=== PATIENT | female | born 1970 | race Caucasian/White ===

== ENCOUNTER 2020-09-16 16:08 | Outpatient (CLI) | payer OTHER, SELFPAY ==
--- NOTE | ~2020-09-16 | MM_ITS ---
EXAMINATION: MM screening melanie BI w samson HISTORY: Screening TECHNIQUE: Craniocaudal and mediolateral oblique 3-D tomosynthesis images were obtained and synthetic 2-D images were generated. CAD analysis was submitted and interpreted. COMPARISON: Comparison to multiple prior studies sequentially, with oldest reviewed study dated 06/18. BREAST PARENCHYMAL COMPOSITION: The breasts are heterogeneously dense, which may obscure small masses . FINDINGS: There is focal asymmetry in the subareolar location of the left breast on MLO view only. Th e right breast is stable without evidence for malignancy. IMPRESSION: 1. Possible architectural distortion/asymmetry subareolar location of the left breast on MLO view onl y. 2. Additional mammographic views and possible breast ultrasound are recommended. BI-RADS Category 0: Incomplete: Needs additional imaging evaluation. Reviewed, dictated and finalized at location A. C RESEARCHER IMPRESSION: 1. Possible architectural distortion/asymmetry subareolar location of the left breast on MLO view only. 2. Additional mammographic views and possible breast ultrasound are recommended . BI-RADS Category 0: Incomplete: Needs additional imaging evaluation.
== END 2020-09-16 16:09 | disposition home or self-care (01) ==
DX: Z12.31 Encounter for screening mammogram for malignant neoplasm of breast (principal); R92.8 Other abnormal and inconclusive findings on diagnostic imaging of breast
CPT/HCPCS: 77063; 77067

== ENCOUNTER 2020-10-15 08:57 | Outpatient (CLI) | payer OTHER, SELFPAY ==
--- NOTE | ~2020-10-15 | MMUS_ITS ---
EXAMINATION: MM diagnostic mammo unilat LT, US breast LT limited HISTORY: Left breast asymmetry on screening mammogram TECHNIQUE: Additional 3-D tomosynthesis images of the left breast were performed and synthetic 2-D im ages were generated. CAD analysis was submitted and interpreted. High resolution limited left breast ultrasound was performed. COMPARISON: 09/16/2020, 08/06/2019, 07/01/2018, 06/29/2017 FINDINGS: MAMMOGRAPHIC FINDINGS: There is a return to baseline fibroglandular appearance with spot compression of the left breast. No suspicious mass, calcification, or architectural distortion are identified. ULTRASOUND: There is no evidence of focal abnormal solid or cystic lesion in the vicinity of the mammographic fin ding in question. IMPRESSION: 1. No mammographic or sonographic evidence of malignancy. 2. Recommend routine screening mammography in one year. BI-RADS Category 1: Negative Reviewed, dictated and finalized at location A. OLE LEVELER IMPRESSION: 1. No mammographic or sonographic evidence of malignancy. 2. Recommend routine screening mammography in one year. BI-RADS Category 1: Negative
== END 2020-10-15 08:58 ==
DX: R92.8 Other abnormal and inconclusive findings on diagnostic imaging of breast (principal)
CPT/HCPCS: 76642; 77065

== ENCOUNTER 2021-10-24 07:20 | Outpatient (CLI) | payer BC, SELFPAY ==
--- NOTE | ~2021-10-24 | MM_ITS ---
EXAMINATION: MM screening melanie BI w samson HISTORY: Screening TECHNIQUE: Craniocaudal and mediolateral oblique 3-D tomosynthesis images were obtained and synthetic 2-D images were generated. CAD analysis was submitted and interpreted. COMPARISON: Comparison to multiple prior studies sequentially, with oldest reviewed study dated 11/04. BREAST PARENCHYMAL COMPOSITION: The breasts are heterogeneously dense, which may obscure small masses . FINDINGS: There is no evidence of suspicious mass, calcification, or architectural distortion to sugg est malignancy in either breast. There has been no suspicious interval change. IMPRESSION: 1. No mammographic evidence of malignancy. 2. Recommend routine screening mammography in one year. BI-RADS Category 1: Negative Reviewed, dictated and finalized at location B. ITUTIONAL CUSTODIAN
== END 2021-10-24 07:21 | disposition home or self-care (01) ==
LOC: ANHIMG 07:27
DX: Z12.31 Encounter for screening mammogram for malignant neoplasm of breast (principal)
CPT/HCPCS: 77063; 77067

== ENCOUNTER 2021-11-16 23:14 | Emergency (ER) | payer BC, SELFPAY ==
--- NOTE | ~2021-11-16 | XR_ITS ---
EXAMINATION: XR elbow RT min 3V DATE: 11/16/2021 23:46 INDICATION: Right elbow injury. TECHNIQUE: 4 views of right elbow were obtained. COMPARISON: None. FINDINGS: Bone alignment is normal. No fracture. Joint spaces are normal. There is a laceration overl jaclyn the olecranon. No radiopaque foreign body. IMPRESSION: 1. Laceration overlying the olecranon. No radiopaque foreign body. Reviewed, dictated and finalized at location A. MBLER FINGER BUFFS
[2021-11-16 23:16] VITALS: BP 147/99; PULSE 104; RESP 18; TEMP 36.8; O2SAT 99
[2021-11-16] MEDS: TETANUS,DIPHTHERIA,AC PERTUSSIS ADULT (0.5 ML) BOOSTRIX IM (23:58)
[2021-11-17] MEDS: LIDO 1%/EPINEPHRINE 1:100,000 10 ML VIAL (00:04)
--- NOTE | 2021-11-17 00:08 | ED.WOUNDLAC ---
HPI - Wound/Laceration General Chief Complaint: Wound/Laceration Stated Complaint: fall with skin tear Time Seen by Provider: 11/16/21 23:29 Source: patient History of Present Illness HPI narrative: Patient presents with a injury to the right elbow. Patient reports he was walking slipped on ice and struck her elbow on the concrete. She not strike her head or any loss conscious denies any focal numbness or weakness. Reports pain to her right elbow is achy, constant, worse with moving her elbow, no radiation. She does not member when her last tetanus was Related Data Home Medications Medication Instructions Recorded Confirmed alprazolam 11/16/21 Allergies Allergy/AdvReac Type Severity Reaction Status Date / Time No Known Allergies Allergy Mild Unverified 12/19/15 14:48 Review of Systems Review of Systems: CONSTITUTIONAL: Denies fever, chills, or sweats. EYES: Denies visual changes, redness, or discharge. ENT: Denies rhinorrhea, congestion, sore throat, or otalgia. CARDIOVASCULAR: Denies chest pain, palpitations, or edema. RESPIRATORY: Denies cough or dyspnea. GASTROINTESTINAL: Denies abdominal pain, nausea, vomiting, or diarrhea. GENITOURINARY: Denies dysuria or hematuria. SKIN: Denies rash or itching. MUSCULOSKELETAL: Denies back pain, joint pain, or myalgia. NEUROLOGIC: Denies headache, numbness, dizziness, or weakness. PSYCHIATRIC: Denies anxiety or depression. All systems reviewed & are unremarkable except as noted in HPI and below Exam Narrative: GENERAL: Well-appearing, well-nourished, and in no acute distress. HEAD: Normocephalic, atraumatic. EYES: PERRLA and EOMI. ENT: Nares clear, no rhinorrhea or epistaxis. Mucous membranes moist. NECK: Supple. No masses. No JVD EXTREMITIES: Normal range of motion. No edema. Superficial laceration to the right elbow approximately 2 cm there is no major neurovascular injury is noted through full range of motion no tenderness injuries noted through full range of motion distal centimeter with less than 2-second cap refill 5 out of 5 agricultural purchasing agent strength and sensation intact to light touch SKIN: Warm, dry, no rash. NEURO: No focal deficits. Alert and oriented x3. PSYCH: Normal mood and affect. Course Vital Signs Vital signs: Vital Signs Temperature 36.8 C 11/16/21 23:16 Pulse Rate 104 H 11/16/21 23:16 Respiratory Rate 18 11/16/21 23:16 Blood Pressure 147/99 H 11/16/21 23:16 Pulse Oximetry 99 11/16/21 23:16 Temperature 36.8 C 11/16/21 23:16 Pulse Rate 72 11/17/21 00:11 Respiratory Rate 18 11/17/21 00:11 Blood Pressure 122/74 11/17/21 00:11 Pulse Oximetry 98 11/17/21 00:11 Procedures Laceration Laceration 1: Date: 11/17/21 Time: 00:00 Site: upper extremity Size (cm): 2 Description: linear Depth: simple, single layer Local Anesthetic: lidocaine 1% and with epi Pre-repair: wound explored and irrigated ====== Skin Level ====== Size (cm): 3-0 Number of sutures: 3 Technique: simple, interrupted ====== Subcutaneous Layer ====== ====== Muscle Layer ====== ====== Tendon Layer ====== MDM - Wound/Laceration MDM Narrative Medical decision making narrative: H&P as above, vss, pt looks clinically well, exam isolated superficial laceration, imaging without acute process, additional labs/img considered, symptomatic relief available as needed, on reevaluation pt continues to looks clinically well. Patient's tetanus was updated suspect mechanical event with isolated laceration, dns ACS, PE, ACS, neurovascular compromise. plan to tx/monitor as op w/ pcm f/u findings/plan discussed with pt, pt agree/comfortable with plan, return precautions given Imaging Data Radiologist's impression: Impressions Elbow X-Ray 11/16/21 23:47 IMPRESSION: 1. Laceration overlying the olecranon. No radiopaque foreign body. Discharge Plan Discharge Clini
[2021-11-17 00:11] VITALS: BP 122/74; PULSE 72; RESP 18; O2SAT 98
== END 2021-11-17 00:14 | disposition home or self-care (01) ==
PROVIDERS: Emergency Provider Emergency Medicine
DX: S51.011A Laceration without foreign body of right elbow, initial encounter (principal); W00.0XXA Fall on same level due to ice and snow, initial encounter; Z23 Encounter for immunization
CPT/HCPCS: 12001; 73080; 90471; 90715; 99283

== ENCOUNTER 2022-12-05 10:24 | Outpatient (CLI) | payer BC, SELFPAY ==
--- NOTE | ~2022-12-05 | MM_ITS ---
EXAMINATION: MM screening melanie BI w samson HISTORY: Screening mammogram TECHNIQUE: Craniocaudal and mediolateral oblique 3-D tomosynthesis images were obtained and synthetic 2-D images were generated. CAD analysis was submitted and interpreted. COMPARISON: 10/24/2021 bilateral screening mammogram 10/15/2020 diagnostic left mammogram and limited left breast ultrasound examination 09/16/2020, 08/06/2019 bilateral screening mammogram examinations... BREAST PARENCHYMAL COMPOSITION: There are scattered areas of fibroglandular density. FINDINGS: There is no evidence of suspicious mass, calcification, or architectural distortion to sugg est malignancy in either breast. There has been no suspicious interval change. IMPRESSION: 1. No mammographic evidence of malignancy. 2. Recommend routine screening mammography in one year. BI-RADS Category 1: Negative Reviewed, dictated and finalized at location A. [place] OFFICE MANAGER
== END 2022-12-05 10:25 | disposition home or self-care (01) ==
DX: Z12.31 Encounter for screening mammogram for malignant neoplasm of breast (principal)
CPT/HCPCS: 77063; 77067

== ENCOUNTER 2024-01-24 16:01 | Outpatient (CLI) | payer BC, SELFPAY ==
--- NOTE | ~2024-01-24 | MM_ITS ---
EXAMINATION: MM screening melanie BI w samson HISTORY: Screening TECHNIQUE: Craniocaudal and mediolateral oblique 3-D tomosynthesis images were obtained and synthetic 2-D images were generated. CAD analysis was submitted and interpreted. COMPARISON: Comparison to multiple prior studies sequentially, with oldest reviewed study dated 07/01. BREAST PARENCHYMAL COMPOSITION: Not dense: There are scattered areas of fibroglandular density. FINDINGS: There is no evidence of suspicious mass, calcification, or architectural distortion to sugg est malignancy in either breast. There has been no suspicious interval change. IMPRESSION: 1. No mammographic evidence of malignancy. 2. Recommend routine screening mammography in one year. BI-RADS Category 1: Negative Reviewed, dictated and finalized at location B.
== END 2024-01-24 16:02 | disposition home or self-care (01) ==
PROVIDERS: PCP Family Medicine
DX: Z12.31 Encounter for screening mammogram for malignant neoplasm of breast (principal)
CPT/HCPCS: 77063; 77067

== ENCOUNTER 2024-07-20 21:12 | Inpatient (IN) | payer BC, SELFPAY ==
--- NOTE | ~2024-07-20 | XR_ITS ---
EXAM: XR ankle LT 2V DATE: 07/20/2024 21:31 HISTORY: pts dog pulled her and she fell . COMPARISON: None available. FINDINGS: Normal mineralization. Spiral fracture of the distal left tibia with 5 mm lateral displace ment and minimal medial angulation. Comminuted versus spiral fracture of the distal left fibula ascen ding to the level of the joint line, without significant displacement. No lytic or blastic lesion. Mi ld scattered degenerative change. Plantar enthesopathy. No erosion or periosteal change. Soft tissue swelling over the fractures. IMPRESSION: Spiral fracture of the distal left tibia with 5 mm lateral displacement and minimal media l angulation. Nondisplaced comminuted/spiral fracture of the distal left fibula. Reviewed, dictated and finalized at location K. IMPRESSION: Spiral fracture of the distal left tibia with 5 mm lateral displace ment and minimal medial angulation. Nondisplaced comminuted/spiral fracture of the distal left fibula.
[2024-07-20 21:13] VITALS: BP 152/92; PULSE 110; RESP 18; TEMP 36.4; O2SAT 100
--- NOTE | 2024-07-20 22:10 | ED.LOWEXIN ---
HPI - Extremity Injury (Lower) General Chief Complaint: Extremity Injury, Lower Stated Complaint: Left leg/ankle injury/pain Time Seen by Provider: 07/20/24 22:04 History of Present Illness HPI Narrative: 54-year-old otherwise healthy female presenting to the emergency department for evaluation of left ankle injury. Patient states she was in her normal state of health when she opened the garage door to let her dogs out and they ran her over, she twisted her ankle that was plans on the ground. She felt significant pain and popping sensation with popping noise. She was not able to bear weight or get up off the ground. She denied her head or lose consciousness. She has swelling in her left ankle with an obvious deformity. Neurovascularly she is intact able to wiggle her toes with good pulsations and no numbness or tingling. No history of broken bones, no blood thinner use, was otherwise in her normal state of health. Related Data Home Medications Medication Instructions Recorded Confirmed alprazolam 0.25 mg tablet 11/16/21 Allergies Allergy/AdvReac Type Severity Reaction Status Date / Time No Known Allergies Allergy Mild Unverified 07/20/24 21:15 Review of Systems Review of Systems: As reviewed above in HPI Exam Narrative: GENERAL: [Well-appearing, well-nourished, and in no acute distress.] HEAD: [Normocephalic, atraumatic.] EYES: [PERRLA and EOMI.] ENT: Nares clear, no rhinorrhea or epistaxis. Mucous membranes moist. NECK: Supple. CHEST: [Clear to auscultation. No respiratory distress.] HEART: [Regular rate and rhythm]. No murmur heard. [Normal peripheral pulses.] ABDOMEN: [Soft, nondistended], [nontender], [No rigidity or guarding] EXTREMITIES: The left ankle is markedly swollen and tender to palpation but no overlying skin breakdown or erythema. 2+ peripheral pulse a prabhakar. Able to plantar and dorsiflex, eversion and inversion ankle is limited secondary to pain and swelling. Proximal calf without any deformity, knee and hip range of motion intact. SKIN: Warm, dry, no rash. NEURO: [No focal deficits]. Alert and oriented [x3.] PSYCH: [Normal mood and affect.] Course Vital Signs Vital signs: Vital Signs Temperature 36.4 C 07/20/24 21:13 Pulse Rate 110 H 07/20/24 21:13 Respiratory Rate 18 07/20/24 21:13 Blood Pressure 152/92 H 07/20/24 21:13 Pulse Oximetry 100 07/20/24 21:13 Oxygen Delivery Room Air 07/20/24 21:13 Temperature 36.4 C 07/20/24 21:13 Pulse Rate 86 07/20/24 22:42 Respiratory Rate 18 07/20/24 22:42 Blood Pressure 131/91 H 07/20/24 22:42 Pulse Oximetry 100 07/20/24 22:42 Oxygen Delivery Room Air 07/20/24 22:32 Procedures Orthopedic Splinting/Casting Injury #1: Splinting/Casting Date: 07/21/24 Splinting/Casting Time: 23:55 Side: left Lower Extremity Injury Location: ankle Lower Extremity Immobilizer: posterior splint and stirrup splint Splint: customized in ED Pre-Procedure Neuro Vascular Exam: normal Post-Procedure Neuro Vascular Exam: normal Other Orthopedic Equipment: crutches MDM - Extremity Injury (Lower) MDM Narrative Medical decision making narrative: 54-year-old female presenting for left ankle injury after being pulled down by her dogs in the garage. She sustained an injury with significant pain and swelling. She has good pulses 2+ peripherally with no neurovascular compromise. She is able to plantar and dorsiflex at the ankle although inversion and eversion is limited by pain. Ankle x-ray was obtained and she was given Dilaudid p.o. for analgesia. Patient's x-rays were independently reviewed by myself and also interpreted by radiology. I appreciated dense spiral fracture of the distal left tibia slightly angulated with a displaced component and a nondisplaced spiral fracture of the left distal fibula as well. Radiology interpretation shows 5 mm of lateral displacement a
[2024-07-20] MEDS: HYDROmorphone HCL (*CRX) 2 MG TABLET PO (22:30)
[2024-07-20 22:32] VITALS: BP 131/91; PULSE 85; O2SAT 100
[2024-07-20 22:42] VITALS: BP 131/91; PULSE 86; RESP 18; O2SAT 100
--- NOTE | 2024-07-20 23:29 | PC.NURSE ---
Report received from CHARLES Boss. Assumed care of patient at this time.
[2024-07-21] VITALS (7 sets, daily range): BP systolic 105–155; BP diastolic 53–95; PULSE 63–97; RESP 10–18; TEMP 35.9–36.7; O2SAT 97–100; BMI 25.7
[2024-07-21] MEDS: HYDROmorphone HCL INJ (*CRX) 1 MG/ML SYR IV PUSH ×4 (00:24→12:41)
--- NOTE | 2024-07-21 00:27 | PC.NURSE ---
Splint has been applied to patients left ankle/leg. ERP states consulting ortho for advisement on possible sedation and reduction. ERP speaking with Ortho for advisement at this time.
--- NOTE | 2024-07-21 00:28 | PC.NURSE ---
Patient states If I have to be put under, I am on ozempic so I want that noted. ERP notified.
[2024-07-21 00:33] LABS: Basophils Percent Auto 0.3 % (0.2-1.2); Eosinophils Absolute Auto 0.1 K/mm3 (0-0.3); Eosinophils Percent Auto 0.7 % (0-4.4); Hematocrit 42.4 % (37.0-47.0); Hemoglobin 14.4 g/dL (12.0-15.0); Immature Granulocyte Absolute 0.03 K/mm3 (0.00-0.031); Immature Granulocyte Percent A 0.3 % (0-0.5); Lymphocytes Absolute Auto 1.49 K/mm3 (0.9-3.2); Lymphocytes Percent Auto 17.3 % (18.3-44.2); Mean Corpuscular Hemoglobin 30.6 pg (26-34); Monocytes Absolute Auto 0.2 K/mm3 (0.1-0.6); Monocytes Percent Auto 2.2 % (2.6-8.5); Neutrophils Absolute Auto 6.8 K/mm3 (1.3-6.7); Neutrophils Percent Auto 79.2 % (45.5-73.1); Platelet Count Result 298 k/mm3 (150-375); Red Blood Count 4.71 M/mm3 (4.2-5.4); Red Cell Distribution Width 12.4 % (11.5-14.5); White Blood Count 8.6 K/mm3 (4.5-10.0)
[2024-07-21 00:44] LABS: Alanine Aminotransferase 19 U/L (6-35); Albumin Level 4.9 g/dL (3.5-5.1); Alkaline Phosphatase 61 U/L (38-126); Anion Gap 10 mmol/L (4-12); Aspartate Amino Transferase 23 U/L (14-36); Bilirubin,Total 0.4 mg/dL (0.2-1.3); Blood Urea Nitrogen 8 mg/dL (7-17); Calcium 9.4 mg/dL (8.4-10.2); Carbon Dioxide 28 mmol/L (22-30); Chloride 104 mmol/L (98-107); Estimated CRCL calculation 86 ml/min; Estimated Glomerular Filt Rate > 60; Glucose 100 mg/dL (65-110); Potassium 4.2 mmol/L (3.4-5.0); Sodium 142 mmol/L (137-145)
[2024-07-21 01:20] LABS: INR 0.9; Prothrombin Time 12.6 Seconds (11.1-14.7)
[2024-07-21 01:21] LABS: Partial Thromboplastin Time 25.7 Seconds (22.3-36.8)
[2024-07-21] MEDS: HYDROcodone/acetaminophen (*CRX) 5-325 MG TABLET 1 TAB PO (02:20)
--- NOTE | 2024-07-21 02:20 | ADMGEN ---
This patient, Natasha Blanchard, was admitted to Medical Room 243-01. Patient/family oriented to hospital policies and general routines including ID bracelet, bed and alarms, visiting hours, pain management, procedures, bathroom and other care routines, personal items, smoking policy, room service/diet, and visiting hours. Information on how to activate the Rapid Response Team has been discussed. Patient/Family are encouraged to report perceived risks to care and to ask questions if they do not understand what they are told or what they should do.
[2024-07-21] MEDS: LACTATED RINGERS 1,000 ML 125 ML IV CONT (02:21)
--- NOTE | 2024-07-21 03:04 | PM.IMHP ---
H&P: HPI History of Present Illness Date/Time: 07/21/24 03:04 Chief Complaint: Left ankle pain after tripping and falling Narrative: 54-year-old female with a past medical history anxiety, tobacco abuse, hepatic steatosis and GERD who presented to the ER via private vehicle after being knocked over by her large dogs and falling. She reports that she was at the top of the 3 stairs to her garage when her dogs knocked her over and she fell down the stairs. She did not hit her head or lose consciousness. She had immediate significant left ankle pain with a popping sensation with audible noise. She was unable to bear weight or get off the ground without assistance. She had obvious deformity did ankle in the ER. Imaging demonstrated a left tib-fib fracture. Patient had intact sensation and pulses distally. Her leg was splinted in the ER. At the time of my evaluation she stated that her pain was uncontrolled on the half a mg of Dilaudid and [place] that had been provided. She is on semaglutide for weight loss. Her last dose was 5 days ago. She has been on semaglutide for 2 months and is lost 3 lb. She does smoke up to a pack of cigarettes per day. She used to drink alcohol heavily but quit 1 year ago when she found out she had hepatic steatosis. She still occasionally drinks a glass of wine. Review of Systems Review of Systems: She denies any respiratory, cardiac or genitourinary symptoms. She denies headache or visual changes. She reports that she is thirsty and wants to drink water. [facility] Past Medical History Medical History (Updated 07/21/24 @ 04:50 by Kelly Eng DO) Anxiety Current smoker Eczema GERD (gastroesophageal reflux disease) Hepatic steatosis Surgical History Surgical History (Updated 07/21/24 @ 04:50 by Kelly Eng DO) Normal colonoscopy Family History Family History (Updated 07/21/24 @ 04:51 by Kelly Eng DO) Mother Diastolic dysfunction without heart failure Social History Social History (Updated 07/21/24 @ 04:55 by Kelly Eng DO) Social History: She is a homemaker. She lives in her own home with her significant other and 3 out of 4 of her children. She has a Labrador retriever and a pit bull. She has smoked up to 1 pack of cigarettes per day and started smoking when she was 16 years old. She reports that she has stopped smoking multiple times in her life for pregnancies and breast feeding. She has smoked for approximately 35 years. She used to drink 10 or more shots of vodka 5 days a week. She quit drinking alcohol in 2022 after finding out she had hepatic steatosis. She denies illicit substance use. Code status: Full code Surrogate decision maker: Mother Smoking packs per day: 0.33 Smoking cigarettes per day: 6.6 Years smoked: 40 Smoking pack-years: 13.20 Smoking status: Current every day smoker Alcohol intake: current Alcohol use details: She used to drink tender more shots 5 days a week. She currently drinks a glass or 2 of wine on a social basis. Substance use: never Do You Feel Safe in your Home?: Yes Lack of Transportation: No Lack of Food: Never True Current Housing: I Have Housing Concerned About Future Housing: No Difficulty Paying Gas/Electric Bills: No Difficulty Paying for Meds: No Currently Unemployed: No Education: High School Diploma/GED Difficulty w/ Childcare or Family Care: No Spiritual care concerns: No Meds Home Medications and Allergies Home Medications Medication Instructions Recorded Confirmed Type alprazolam 0.25 mg tablet 0.25 mg PO BID PRN Anxiety 11/16/21 07/21/24 History pantoprazole 40 mg tablet,delayed 40 mg PO DAILY 07/21/24 07/21/24 History release semaglutide 1 mg/dose (2 mg/1.5 0.4 mg subcut WEEKLY 07/21/24 07/21/24 History mL) subcutaneous pen injector Allergies Allergy/AdvReac Type Severity Reaction Status Date / Time No Known Allergies Allergy Mi
--- NOTE | 2024-07-21 08:12 | PM.IMPN ---
Progress Note: A&P Assessment and Plan (1) Fracture of tibia and fibula: Qualifiers: Encounter type: initial encounter Fracture type: closed Laterality: left Qualified Code(s): S82.202A - Unspecified fracture of shaft of left tibia, initial encounter for closed fracture; S82.402A - Unspecified fracture of shaft of left fibula, initial encounter for closed fracture Code(s): S82.209A - Unspecified fracture of shaft of unspecified tibia, initial encounter for closed fracture; S82.409A - Unspecified fracture of shaft of unspecified fibula, initial encounter for closed fracture Status: Acute Assessment and Plan: Left ankle in a splint. Unable to visualize but patient reported fracture is not open. 07/20 X-ray left ankle Spiral fracture of the distal left tibia with 5 mm lateral displacement and minimal medial angulation. Nondisplaced comminuted/spiral fracture of the distal left fibula. --Likely transfer to orthopedic service since no medical problems --Pain control (2) Acute pain: Code(s): R52 - Pain, unspecified Status: Acute Assessment and Plan: Acute pain due to fracture of left ankle --Schedule tylenol QID --Oxy CR 10mg q12 x3 doses --Schedule toradol q6 --Start gabapentin 100 TID --Continue oxy, dilaudid prn --Continuous oximetry while on high doses of dilaudid --Start miralax for bowel regimen (3) Weight loss, intentional: Status: Acute Assessment and Plan: Patient taking semaglutide for weight loss. She is not diabetic --Holding semaglutide --Accuchecks q6 --Add dextrose fluids @100/hr (4) Current smoker: Code(s): F17.200 - Nicotine dependence, unspecified, uncomplicated Status: Acute Assessment and Plan: Smokes 1 pack every 2-3 days Nicotine patch if requested, off for now Plan Patient's leg is splinted. Consult was been placed for Dr. Justin Hidalgo, Dr. Pond security operations analyst and declined, unable to repair fracture at this hospital. Called the [facility] transfer center and they are looking for an accepting physician with the orthopedic service Ice chips and sips of water until we hear from the transfer center. Still having significant pain with dilaudid, titrating medications. Will resume patient's home Protonix and xanax PRN. Patient's semaglutide is on hold, last dose 07/17. Add accuchecks and D5@100 while NPO Will defer DVT prophylaxis until we know if the patient is going for surgical procedure. Time Spent With Patient Time: 54 minutes Subjective Date/time seen: 07/21/24 08:12 Interval history: Admitted for a spiral fracture of the distal left tibia. Reports severe pain from ankle Ortho here not able to repair, recommended transfer. Called transfer center at [facility] and they are looking for an accepting physician with orthopedics Review of Systems Review of Systems: She denies any respiratory, cardiac or genitourinary symptoms. She denies headache or visual changes. She reports that she is thirsty and wants to drink water. Exam Narrative: Weight 72.4 kg BMI 25.8 General - Awake and alert. No acute distress Eyes - PERRLA, EOM intact ENT - No thrush, No erythema Neck - No noticeable or palpable swelling Lymph Nodes - No lymphadenopathy Cardiovascular - RRR no m/r/g, no JVD Lungs: Clear to auscultation, No wheezing, use of accessory muscles, no crackles or wheezes. Skin - Skin warm and dry, no wounds or rashes Abdomen - Normal bowel sounds, abdomen soft and nontender Extremities - No edema, cyanosis or clubbing Musculoskeletal - 5/5 strength, Able to wiggle toes in left foot, pink, capillary refill <2sec, normal sensation Pain to low ankle, wrapped/splinted Neurological ? Alert and oriented x 3, CN 2-12 grossly intact. Psych: Normal mood and affect Objective Data Vital Signs Vital Signs: Vital Signs - 24 hr 07/20/24 21:13 07/20/24 22:32 07/20/24 22:42 Temperature 97.6 F Pulse Rate 110 H
[2024-07-21] MEDS: PANTOPRAZOLE 40 MG TABLET PO (08:14)
[2024-07-21] MEDS: DEXTROSE 5%/0.9% SOD CHL 1,000 ML 100 ML IV CONT (08:42)
[2024-07-21] MEDS: KETOROLAC 30 MG/ML VIAL (*BKC) IV PUSH ×3 (08:47→23:23)
[2024-07-21] MEDS: GABAPENTIN 100 MG CAPSULE PO ×3 (08:48→16:23)
[2024-07-21] MEDS: ACETAMINOPHEN 500 MG TABLET 1000 MG PO ×4 (08:48→23:23)
[2024-07-21] MEDS: polyethylene glycoL 3350 17 GM POWD.PACK PO (08:49)
[2024-07-21] MEDS: oxyCODONE HCL (*CRX) 10 MG TAB SR 12HR PO ×2 (08:49→20:26)
--- NOTE | 2024-07-21 12:08 | PM.CNOR ---
Assessment and Plan Assessment and plan (1) Fracture of tibia and fibula: Qualifiers: Encounter type: initial encounter Fracture type: closed Laterality: left Qualified Code(s): S82.202A - Unspecified fracture of shaft of left tibia, initial encounter for closed fracture; S82.402A - Unspecified fracture of shaft of left fibula, initial encounter for closed fracture Code(s): S82.209A - Unspecified fracture of shaft of unspecified tibia, initial encounter for closed fracture; S82.409A - Unspecified fracture of shaft of unspecified fibula, initial encounter for closed fracture Status: Acute Assessment and Plan: Nondisplaced fractures of the tibia and fibula. Minimal step-off of the oblique spiral fracture of the tibia. The fibula is nondisplaced. I reviewed the findings with the patient. I recommend conservative treatment initially since the reduction is quite acceptable. She will need to follow up within a week for radiographs and casting. There is a risk of angulation and rotational deformity. We discussed the implications. We discussed the role of open reduction internal fixation should this occur. Follow-up x-rays as an outpatient later this week. History of Present Illness HPI Consult date: 07/21/24 Chief complaint: Tib-fib fracture Narrative: Pleasant 54-year-old female fell twisting her ankle. Complains of exquisite pain and inability to weight bear. Was evaluated emergency department and splinted. Admitted for definitive management. No numbness, tingling, or other associated symptoms. Review of Systems Review of Systems: Denies loss of consciousness. All systems reviewed & are unremarkable except as noted in HPI and below PMFSH Past Medical History Medical History (Updated 07/21/24 @ 08:35 by Prema Walker APRN) Anxiety Current smoker Eczema GERD (gastroesophageal reflux disease) Hepatic steatosis Surgical History Surgical History (Updated 07/21/24 @ 04:50 by Kelly Eng DO) Normal colonoscopy Family History Family History (Updated 07/21/24 @ 04:51 by Kelly Eng DO) Mother Diastolic dysfunction without heart failure Social History Social History (Updated 07/21/24 @ 04:55 by Kelly Eng DO) Social History: She is a homemaker. She lives in her own home with her significant other and 3 out of 4 of her children. She has a Labrador retriever and a pit bull. She has smoked up to 1 pack of cigarettes per day and started smoking when she was 16 years old. She reports that she has stopped smoking multiple times in her life for pregnancies and breast feeding. She has smoked for approximately 35 years. She used to drink 10 or more shots of vodka 5 days a week. She quit drinking alcohol in 2022 after finding out she had hepatic steatosis. She denies illicit substance use. Code status: Full code Surrogate decision maker: Mother Smoking packs per day: 0.33 Smoking cigarettes per day: 6.6 Years smoked: 40 Smoking pack-years: 13.20 Smoking status: Current every day smoker Alcohol intake: current Alcohol use details: She used to drink tender more shots 5 days a week. She currently drinks a glass or 2 of wine on a social basis. Substance use: never Do You Feel Safe in your Home?: Yes Lack of Transportation: No Lack of Food: Never True Current Housing: I Have Housing Concerned About Future Housing: No Difficulty Paying Gas/Electric Bills: No Difficulty Paying for Meds: No Currently Unemployed: No Education: High School Diploma/GED Difficulty w/ Childcare or Family Care: No Spiritual care concerns: No Meds Home Medications and Allergies Home Medications Medication Instructions Recorded Confirmed Type alprazolam 0.25 mg tablet 0.25 mg PO BID PRN Anxiety 11/16/21 07/21/24 History pantoprazole 40 mg tablet,delayed 40 mg PO DAILY 07/21/24 07/21/24 History release semaglutide 1 mg/dose (2 m
[2024-07-21] MEDS: ONDANSETRON INJ 4 MG/2 ML VIAL IV PUSH (20:26)
[2024-07-21] MEDS: ALPRAZolam (*CRX) 0.25 MG TABLET PO (20:26)
--- NOTE | 2024-07-21 21:05 | PM.TDS ---
Transfer Discharge Sum: Prov Provider Date of admission: 07/21/24 00:58 Primary care physician: Gage Connell, Admitting clinician: Kelly Eng DO Consults: 07/21/24 Consult to Physician Routine Comment: Consulting Provider: Justin Hidalgo Reason for consultation: Tib-fib fracture Has provider been notified: No DS: Admitting Diagnosis Admitting Diagnosis Left ankle fracture DS: Discharge Diagnosis Discharge Diagnosis Plan The patient is a Transfer Discharge Sum: Med Medications Active and Home Medications: Home Medications alprazolam 0.25 mg tablet 0.25 mg PO BID PRN Anxiety 11/16/21 [History Confirmed 07/21/24] oxycodone-acetaminophen 5 mg-325 mg tablet 1 - 2 tablet PO Q6H PRN pain #30 tabs 07/21/24 [Rx] pantoprazole 40 mg tablet,delayed release 40 mg PO DAILY 07/21/24 [History Confirmed 07/21/24] semaglutide 1 mg/dose (2 mg/1.5 mL) subcutaneous pen injector 0.4 mg subcut WEEKLY 07/21/24 [History Confirmed 07/21/24] Active Medications Acetaminophen (Acetaminophen 500 Mg Tablet) 1,000 mg PO Q6HR [facility] Last Admin: 07/21/24 17:24 Dose: 1,000 mg Alprazolam (Alprazolam (*Crx) 0.25 Mg Tablet) 0.25 mg PO BID PRN PRN Reason: Anxiety Last Admin: 07/21/24 20:26 Dose: 0.25 mg Dextrose (Dextrose 50% 25 Gm/50 Ml Syringe) 12.5 gm IV PUSH PRN PRN; Protocol PRN Reason: Hypoglycemia Gabapentin (Gabapentin 100 Mg Capsule) 100 mg PO TID [facility] Last Admin: 07/21/24 16:23 Dose: 100 mg Glucagon (Glucagon For Inj 1 Mg Vial) 1 mg IM PRN PRN; Protocol PRN Reason: Hypoglycemia Glucose (Glucose Oral Gel 15 Gm Of Glucse In 37.5 Gm Tube) 15 gm PO PRN PRN; Protocol PRN Reason: Hypoglycemia Hydromorphone HCl (Hydromorphone Hcl Inj (*Crx) 1 Mg/Ml Syr) 1 mg IV PUSH Q2H PRN PRN Reason: Pain Rated 7-10 Last Admin: 07/21/24 12:41 Dose: 1 mg Dextrose (Dextrose 5% 1,000 Ml) 1,000 mls @ 100 mls/hr IVPB PRN PRN; Protocol PRN Reason: Hypoglycemia Dextrose/Sodium Chloride (Dextrose 5% Sodium Chloride 0.9%) 1,000 mls @ 100 mls/hr IV CONT .Q10H [facility] Last Admin: 07/21/24 08:42 Dose: 100 mls/hr Ketorolac Tromethamine (Ketorolac 30 Mg/Ml Vial (*Bkc)) 30 mg IV PUSH Q6HR [facility] Last Admin: 07/21/24 17:23 Dose: 30 mg Ondansetron HCl (Ondansetron Inj 4 Mg/2 Ml Vial) 4 mg IV PUSH Q4H PRN PRN Reason: Nausea Last Admin: 07/21/24 20:26 Dose: 4 mg Oxycodone HCl (Oxycodone Hcl (*Crx) 5 Mg Tab Ir) 10 mg PO Q4H PRN PRN Reason: pain rated 3-5 Oxycodone HCl (Oxycodone Hcl (*Crx) 10 Mg Tab Sr 12hr) 10 mg PO Q12HR [facility] Stop: 07/22/24 10:00 Last Admin: 07/21/24 20:26 Dose: 10 mg Pantoprazole Sodium (Pantoprazole 40 Mg Tablet) 40 mg PO DAILY [facility] Last Admin: 07/21/24 08:14 Dose: 40 mg Polyethylene Glycol (Polyethylene Glycol 3350 17 Gm Powd.Pack) 17 gm PO QAM [facility] Last Admin: 07/21/24 08:49 Dose: 17 gm Transfer Discharge Sum: Hosp Hospital Course Hospital course: Natasha Blanchard is a 54 year old female Time Spent with Patient Time attestation: Total time spent providing and/or coordinating transfer services: DS: Data Data Completed and Pending Labs on day of discharge: Labs from last 24 hours 07/21/24 00:23 WBC 8.6 RBC 4.71 Hgb 14.4 Hct 42.4 MCV 90.0 MCH 30.6 MCHC 34.0 RDW 12.4 Plt Count 298 MPV 9.0 Immature Gran % (Auto) 0.3 Neut % (Auto) 79.2 H Lymph % (Auto) 17.3 L [place] % (Auto) 2.2 L Eos % (Auto) 0.7 Baso % (Auto) 0.3 Lymph # (Auto) 1.49 [place] # (Auto) 0.2 Eos # (Auto) 0.1 Baso # (Auto) 0.0 Abs Immat Gran (auto) 0.03 Absolute Neuts (auto) 6.8 H Absolute Nucleated RBC 0.000 Nucleated RBC % 0.0 PT 12.6 INR 0.9 APTT 25.7 Sodium 142 Potassium 4.2 Chloride 104 Carbon Dioxide 28 Anion Gap 10 BUN 8 Creatinine 0.60 L Estim Creat Clear Calc 86 Estimated GFR > 60 Glucose 100 Calcium 9.4 Total Bilirubin 0.4 AST 23 ALT 19 Alkaline Phosphatase 61 Total Protein 8.0 Albumin 4.9
[2024-07-22 05:00] VITALS: BP 100/73; PULSE 88; RESP 17; TEMP 37.1; O2SAT 96
[2024-07-22] MEDS: ACETAMINOPHEN 500 MG TABLET 1000 MG PO (05:04)
[2024-07-22] MEDS: KETOROLAC 30 MG/ML VIAL (*BKC) IV PUSH ×2 (05:05→12:57)
--- NOTE | 2024-07-22 07:12 | PM.IMPN ---
Progress Note: A&P Assessment and Plan (1) Fracture of tibia and fibula: Qualifiers: Encounter type: initial encounter Fracture type: closed Laterality: left Qualified Code(s): S82.202A - Unspecified fracture of shaft of left tibia, initial encounter for closed fracture; S82.402A - Unspecified fracture of shaft of left fibula, initial encounter for closed fracture Code(s): S82.209A - Unspecified fracture of shaft of unspecified tibia, initial encounter for closed fracture; S82.409A - Unspecified fracture of shaft of unspecified fibula, initial encounter for closed fracture Status: Acute Assessment and Plan: Having more pain today, but changed toradol to naproxen --Pain control as noted --Awake and alert, discontinued oximetry --Last BM 07/20. Started miralax for bowel regimen, increase to BID, add senna daily, bisacodyl tomorrow if no BM in 48 hours (2) Acute pain: Code(s): R52 - Pain, unspecified Status: Acute Assessment and Plan: Pain was controlled overnight. Increased pain this morning but trialing naproxen instead of toradol --Continue scheduled tylenol QID --Continue oxy CR 10mg q12 --Toradol changed to naproxen 500 BID, can change back if needed --Start gabapentin 100<200 TID --Continue oxy 5-10, dilaudid 0.5 q2 prn, also have 1mg dilaudid once for severe pain ordered but hasn't needed it yet --Has normal pulses, no tingling or numbness in foot or leg. Monitoring for compartment syndrome --Neurochecks to left foot q shift --Elevate left leg (3) Weight loss, intentional: Status: Acute Assessment and Plan: Holding semaglutide. Last dose was 07/17. Taking for weight loss --Check blood sugars if she needs to be NPO. Has a half life of about 1 week (takes 5-7 weeks to be eliminated fully) --Continuing a regular diet (4) Current smoker: Code(s): F17.200 - Nicotine dependence, unspecified, uncomplicated Status: Acute Assessment and Plan: Recommended smoking cessation Plan Time Spent With Patient Time: 59 minutes Subjective Date/time seen: 07/22/24 07:12 Interval history: Changed toradol to naproxen this morning and having increased pain. Still IV Dilaudid. Increasing gabapentin. Adjusting pain regimen for a tolerable regimen for home Cancelled transfer to [place]. Ortho planning to follow up with her in the office. Currently admitted for pain control. If new changes, should discuss with Dr. Hidalgo. If surgery is needed, she would likely need to be treated at [place] Review of Systems Review of Systems: No new complaints today. Not craving cigarettes All systems reviewed & are unremarkable except as noted in HPI and below Exam Narrative: Weight 72.4 kg BMI 25.8 General - Awake and alert. No acute distress Eyes - PERRLA, EOM intact ENT - No thrush, No erythema Neck - No noticeable or palpable swelling Lymph Nodes - No lymphadenopathy Cardiovascular - RRR no m/r/g, no JVD Lungs: Clear to auscultation, No wheezing, use of accessory muscles, no crackles or wheezes. Skin - Skin warm and dry, no wounds or rashes Abdomen - Normal bowel sounds, abdomen soft and nontender Extremities - No edema, cyanosis or clubbing Musculoskeletal - 5/5 strength, Able to wiggle toes in left foot, pink, capillary refill <2sec, normal sensation Pain to low ankle, wrapped/splinted to calf. Swelling below the knee Neurological ? Alert and oriented x 3, CN 2-12 grossly intact. Psych: Normal mood and affect Objective Data Vital Signs Vital Signs: Vital Signs - 24 hr 07/21/24 08:17 07/21/24 08:14 07/21/24 14:00 Temperature 96.7 F L Pulse Rate 63 Respiratory Rate 16 10 L Blood Pressure 105/62 Pulse Oximetry 99 99 97 Oxygen Delivery Room Air Room Air Fraction of Inspired Oxygen 21 21 07/21/24 20:05 07/21/24 20:00 07/22/24 05:00 Temperature 98.0 F 98.8 F Pulse Rate 73 88 Respiratory Rat
[2024-07-22] MEDS: oxyCODONE HCL (*CRX) 10 MG TAB SR 12HR PO (08:17)
[2024-07-22] MEDS: GABAPENTIN 100 MG CAPSULE PO (08:17)
[2024-07-22] MEDS: PANTOPRAZOLE 40 MG TABLET PO (08:17)
[2024-07-22] MEDS: NAPROXEN 500 MG TABLET PO (08:17)
[2024-07-22] MEDS: polyethylene glycoL 3350 17 GM POWD.PACK PO (08:18)
[2024-07-22] MEDS: oxyCODONE HCL (*CRX) 5 MG TAB IR 10 MG PO (11:18)
[2024-07-22 11:24] VITALS: BP 129/82; PULSE 80; RESP 19; TEMP 36.3; O2SAT 100
--- NOTE | 2024-07-22 11:25 | PM.PNORT ---
Progress Note: A&P Assessment and Plan (1) Fracture of tibia and fibula: Qualifiers: Encounter type: initial encounter Fracture type: closed Laterality: left Qualified Code(s): S82.202A - Unspecified fracture of shaft of left tibia, initial encounter for closed fracture; S82.402A - Unspecified fracture of shaft of left fibula, initial encounter for closed fracture Code(s): S82.209A - Unspecified fracture of shaft of unspecified tibia, initial encounter for closed fracture; S82.409A - Unspecified fracture of shaft of unspecified fibula, initial encounter for closed fracture Status: Acute (2) Current smoker: Code(s): F17.200 - Nicotine dependence, unspecified, uncomplicated Status: Acute Plan Nondisplaced fractures of the tibia and fibula. Minimal step-off of the oblique spiral fracture of the tibia. The fibula is nondisplaced. After discussion with Dr. Hidalgo and a trauma specialist, will refer her as an outpatient. She has an appointment with Dr. Patel at [facility] at 2:00 today. Continue ice, and elevation. Splint intact. Oxycodone for pain. Subjective Subjective Date/Time Seen: 07/22/24 11:25 Interval history: Patient resting comfortably in bed. No acute distress. Complains of pain. No numbness or tingling. Review of Systems Review of Systems: All systems reviewed & are unremarkable except as noted in HPI and below Exam Narrative: 54 y/o female patient. Thin. The left ankle is appropriately splinted. No obvious deformity. Wiggles toes. Light touch sensation intact. Knee examination benign. Musculoskeletal survey negative. Objective Data Vital Signs Vital Signs: Vital Signs - 24 hr 07/21/24 14:00 07/21/24 20:05 07/21/24 20:00 Temperature 96.7 F L 98.0 F Pulse Rate 63 73 Respiratory Rate 10 L 17 Blood Pressure 105/62 133/85 Pulse Oximetry 97 99 Oxygen Delivery Room Air 07/22/24 05:00 07/22/24 08:24 07/22/24 11:24 Temperature 98.8 F 97.4 F L Pulse Rate 88 80 Respiratory Rate 17 19 Blood Pressure 100/73 129/82 Pulse Oximetry 96 100 Oxygen Delivery Room Air Intake/Output Intake/Output: Intake & Output 10/12/24 07/20/24 07/21/24 07/22/24 23:59 23:59 23:59 23:59 Intake Total 858 370 Output Total 500 Balance 358 370 Meds/Results Medications: Active Medications Generic Name Dose Route Start Last Admin Trade Name Freq PRN Reason Stop Dose Admin Acetaminophen 1,000 mg 07/21/24 08:15 07/22/24 05:04 Acetaminophen 500 Mg Tablet PO 1,000 mg Q6HR LUCIO Administration Alprazolam 0.25 mg 07/21/24 03:52 07/21/24 20:26 Alprazolam (*Crx) 0.25 Mg Tablet PO 0.25 mg BID PRN Administration Anxiety Bisacodyl 5 mg 07/23/24 09:00 Bisacodyl 5 Mg Tablet Ec PO QAM LUCIO Dextrose 12.5 gm 07/21/24 08:24 Dextrose 50% 25 Gm/50 Ml Syringe IV PUSH PRN PRN Hypoglycemia Protocol Gabapentin 200 mg 07/22/24 13:00 Gabapentin 100 Mg Capsule PO TID LUCIO Glucagon 1 mg 07/21/24 08:24 Glucagon For Inj 1 Mg Vial IM PRN PRN Hypoglycemia Protocol Glucose 15 gm 07/21/24 08:24 Glucose Oral Gel 15 Gm Of Glucse In 37.5 Gm Tube PO PRN PRN Hypoglycemia Protocol Hydromorphone HCl 1 mg 07/21/24 21:14 Hydromorphone Hcl Inj (*Crx) 1 Mg/Ml Syr IV PUSH ONCE PRN severe pain Hydromorphone HCl 0.5 mg 07/22/24 07:09 Hydromorphone Hcl Inj (*Crx) 1 Mg/Ml Syr IV PUSH Q2H PRN Breakthrough Pain Dextrose 1,000 mls @ 100 mls/hr 07/21/24 08:24 Dextrose 5% 1,000 Ml IVPB PRN PRN Hypoglycemia Protocol Dextrose/Sodium Chloride 1,000 mls @ 100 mls/hr 07/21/24 08:25 07/21/24 08:42 Dextrose 5% Sodium Chloride 0.9% IV CONT 100 mls/hr .Q10H LUCIO Administration Naproxen 500 mg 07/22/24 08:00 07/22/24 08:17 Naproxen 500 Mg Tablet PO 500 mg BIDWM LUCIO Administration Ondansetron HCl 4 mg 07/21/24
== END 2024-07-22 13:07 | disposition home or self-care (01) | DRG 563 ==
LOC: ANHED 07-21 01:03 → ANH2MED 07-21 01:21
PROVIDERS: Admitting Provider Internal Medicine; Emergency Provider Student in an Organized Health Care Education/Training Program; PCP Family Medicine; Visit Provider Nurse Practitioner Acute Care
DX: S82.242A Displaced spiral fracture of shaft of left tibia, initial encounter for closed fracture (principal); S82.455A Nondisplaced comminuted fracture of shaft of left fibula, initial encounter for closed fracture; W54.1XXA Struck by dog, initial encounter; F41.9 Anxiety disorder, unspecified; F17.210 Nicotine dependence, cigarettes, uncomplicated; K76.0 Fatty (change of) liver, not elsewhere classified; K21.9 Gastro-esophageal reflux disease without esophagitis; Z79.85 Long-term (current) use of injectable non-insulin antidiabetic drugs; Z28.21 Immunization not carried out because of patient refusal
CPT/HCPCS: 29515; 36415; 73600; 80053; 85025; 85610; 85730; 96374; 99285; A9270; J1171; J1885; J2405; J7042; J7120

== ENCOUNTER 2025-01-26 09:20 | Outpatient (CLI) | payer BC, SELFPAY ==
--- NOTE | ~2025-01-26 | MM_ITS ---
EXAMINATION: MM screening [facility] BI w samson HISTORY: Screening TECHNIQUE: Craniocaudal and mediolateral oblique 3-D tomosynthesis images were obtained and synthetic 2-D images were generated. CAD analysis was submitted and interpreted. COMPARISON: 01/24/2024 and dating back to 08/06/2019 BREAST PARENCHYMAL COMPOSITION: The breasts are heterogeneously dense, which may obscure small masses . FINDINGS: Bulky calcification within the upper outer quadrant of the right breast, morphologically be nign in appearance. Otherwise stable parenchymal pattern without suspicious microcalcifications, architectural distortion , discrete masses or significant asymmetry. IMPRESSION: 1. No mammographic evidence of malignancy. 2. Recommend routine screening mammography in one year. BI-RADS Category 2: Benign finding(s). Reviewed, dictated and finalized at location A.
--- OUTSIDE RECORDS SUMMARY | 2025-01-26 10:22 | XMS_ITS | Encounter Summary ---
Author Organization [facility] Address 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 Gender Identity Not on file Sexual Orientation Not on file documented as of this encounter Plan of Treatment Upcoming Encounters Date Type Department Care Team (Late st Contact Info) Description 01/04/2026 11:15 AM CDT Office Visit [facility] NET WEB APPLICATION DEVELOPER [address] [place] [address] Kristel Vaca MD [address] [place] [address] [facility] [address] [place] [address] documented as of this encounter Visit Diagnoses Diagnosis Other current maternal conditions classifiable elsewhere, antepartum- Primary documented in this encounter Care Teams Ramp Service Employee Relationship Specialty Start Date End Date Luis Rucker MD [address] [facility] [address] [place] [phone] PCP - General 04/03/04 documented as of this encounter
--- OUTSIDE RECORDS SUMMARY | 2025-01-26 10:22 | XMS_ITS | Encounter Summary ---
Author Organization [facility] Address 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 Gender Identity Not on file Sexual Orientation Not on file documented as of this encounter Plan of Treatment Upcoming Encounters Date Type Department Care Team (Late st Contact Info) Description 01/04/2026 11:15 AM CDT Office Visit [facility] TACK MAKER [address] [place] [address] Kristel Vaca MD [address] [place] [address] [facility] [address] [place] [address] documented as of this encounter Visit Diagnoses Diagnosis Second-degree perineal laceration, with delivery- Primary documented in this encounter Care Teams Java Jsf Developer Relationship Specialty Start Date End Date Luis Rucker MD [address] [place] [address] [place] [address] PCP - General 04/03/04 documented as of this encounter
--- OUTSIDE RECORDS SUMMARY | 2025-01-26 10:22 | XMS_ITS | Encounter Summary ---
Author Organization [facility] Address 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 Gender Identity Not on file Sexual Orientation Not on file documented as of this encounter Plan of Treatment Upcoming Encounters Date Type Department Care Team (Late st Contact Info) Description 01/04/2026 11:15 AM CDT Office Visit [facility] COAL GASIFICATION TECHNICIAN [address] [place] [address] Kristel Vaca MD [address] [place] [address] [facility] [address] [place] [address] documented as of this encounter Visit Diagnoses Diagnosis Other current maternal conditions classifiable elsewhere, antepartum- Primary documented in this encounter Care Teams Health Information Technician Relationship Specialty Start Date End Date Luis Rucker MD [facility] [facility] [address] [place] [phone] PCP - General 04/03/04 documented as of this encounter
--- OUTSIDE RECORDS SUMMARY | 2025-01-26 10:22 | XMS_ITS | Encounter Summary ---
Author Organization [email or web address] Address 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 Gender Identity Not on file Sexual Orientation Not on file documented as of this encounter Plan of Treatment Upcoming Encounters Date Type Department Care Team (Late st Contact Info) Description 01/04/2026 11:15 AM CDT Office Visit [facility] SPORTS EQUIPMENT REPAIRER [address] [place] [address] Kristel Vaca MD [address] [place] [address] [facility] [address] [place] [address] documented as of this encounter Visit Diagnoses Diagnosis Unspecified high-risk - Primary documented in this encounter Care Teams Flow Nurse Relationship Specialty Start Date End Date Luis Rucker MD [address] [facility] [address] [place] [phone] PCP - General 04/03/04 documented as of this encounter
--- OUTSIDE RECORDS SUMMARY | 2025-01-26 10:22 | XMS_ITS | Encounter Summary ---
Author Organization [facility] Address [address] [place] [address] Care Team Providers Care Dixonac Operator Name Role Phone Luis Rucker MD Primary Care Provider Encounter Details Date Type Department Care Team (Latest Contact Info) Description 09/18/2001 Outpatient Historical HIS PATIENT IN A BED Jalen Jiang MD [address] [place] [address] HYPERTENS NOS-ANTEPARTUM (Primary Dx) Social History Tobacco Use Types Packs/Day Years Used Date Smoking Tobacco: Never Assessed Comments Unknown Sex and Gender Information Value Date Recorded Sex Assigned at Not on file Legal Sex Female 3:[address] Gender Identity Not on file Sexual Orientation Not on file documented as of this encounter Plan of Treatment Upcoming Encounters Date Type Department Care Team (Late st Contact Info) Description 01/04/2026 11:15 AM CDT Office Visit [facility] HUMAN SERVICES PROFESSIONAL [address] [address] Kristel Vaca MD [address] [place] [address] [facility] [address] [place] [address] documented as of this encounter Visit Diagnoses Diagnosis Unspecified hypertension antepartum(642.93)- Primary Unspecified hypertension antepartum documented in this encounter Care Teams Dixonac Operator Relationship Specialty Start Date End Date Luis Rucker MD [facility] [address] [place] [phone] PCP - General 04/03/04 documented as of this encounter
--- OUTSIDE RECORDS SUMMARY | 2025-01-26 10:22 | XMS_ITS | Clinical Summary ---
Author Organization [facility] Address [address] [place] [id number] Care Team Providers Care Armature Winder Helper Repair Name Role Phone Unavailable Primary Care Provider Unavailabl e Social History Tobacco Use Types Packs/Day Years Used Date Smoking Tobacco: Never Assessed Comments Unknown Sex and Gender Information Value Date Recorded Sex Assigned at Not on file Legal Sex Female 4:35 PM CDT Gender Identity Not on file Sexual Orientation Not on file Plan of Treatment Health Maintenance Due Date Last Done Comments Cervical Cancer Screening Pa p Smear (Age 30 to 64) Every 3 Years 1971 Colorectal Cancer Screening Colonoscopy (10 Years) 1971 Annual Physical 1974 Hepatitis C 1989 DTaP, Tdap and Td Vaccines ( 1 - Tdap) 1990 Hepatitis B Vaccines (1 of 3 - 19+ 3-dose series) 1990 Cervical Cancer Screening Pa p with HPV Testing (Age 30 to 64) Every 5 Years 2001 Cervical Cancer Screening with HPV 2001 Mammogram Screening 2011 Pneumococcal Vaccine: 50+ Ye ars (1 of 1 - PCV) 2021 Zoster Vaccines (1 of 2) 2021 COVID-19 Vaccine ( - 2023-2 5 season) 2024 Meningococcal B Vaccine Aged Out No l onger eligible based on patient's age to complete this topic Meningococcal Vaccine Aged Out No tania guillermo eligible based on patient's age to complete this topic RSV Immunizations Under 20 Months Aged Out No longer eligible based on patient's age to complete this topic
--- OUTSIDE RECORDS SUMMARY | 2025-01-26 10:22 | XMS_ITS | Encounter Summary ---
Author Organization [facility] Address [address] [place] [address] Care Team Providers Care Verification Engineer Name Role Phone Luis Rucker MD Primary Care Provider Encounter Details Date Type Department Care Team (Latest Contact Info) Description 07/16/2001 Outpatient Historical HIS PATIENT IN A BED Seng Causey MD [address] [place] [id number] Jalen Jiang MD [address] [place] [address] Other current maternal conditions classifiable elsewhere, antepartum (Primary Dx) Social History Tobacco Use Types Packs/Day Years Used Date Smoking Tobacco: Never Assessed Comments Unknown Sex and Gender Information Value Date Recorded Sex Assigned at Not on file 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 Gender Identity Not on file Sexual Orientation Not on file documented as of this encounter Plan of Treatment Upcoming Encounters Date Type Department Care Team (Late st Contact Info) Description 01/04/2026 11:15 AM CDT Office Visit [facility] AGENCY SERVICE COORDINATOR [address] [place] [address] Kristel Vaca MD [address] [place] [address] [facility] [address] [place] [address] documented as of this encounter Visit Diagnoses Diagnosis Other current maternal conditions classifiable elsewhere, antepartum- Primary documented in this encounter Care Teams Verification Engineer Relationship Specialty Start Date End Date Luis Rucker MD [address] [place] [address] PCP - General 04/03/04 documented as of this encounter
--- OUTSIDE RECORDS SUMMARY | 2025-01-26 10:22 | XMS_ITS | Encounter Summary ---
Author Organization [facility] Address 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 Gender Identity Not on file Sexual Orientation Not on file documented as of this encounter Plan of Treatment Upcoming Encounters Date Type Department Care Team (Late st Contact Info) Description 01/04/2026 11:15 AM CDT Office Visit [facility] FUNERAL SERVICE APPRENTICE [address] [place] [address] Kristel Vaca MD [address] [place] [address] [facility] [address] [place] [address] documented as of this encounter Visit Diagnoses Diagnosis Transient hypertension of , with delivery- Primary documented in this encounter Care Teams Property Insurance Agent Relationship Specialty Start Date End Date Luis Rucker MD [address] [facility] [address] [place] [phone] PCP - General 04/03/04 documented as of this encounter
--- OUTSIDE RECORDS SUMMARY | 2025-01-26 10:22 | XMS_ITS | Encounter Summary ---
Author Organization [facility] Address 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 Gender Identity Not on file Sexual Orientation Not on file documented as of this encounter Plan of Treatment Upcoming Encounters Date Type Department Care Team (Late st Contact Info) Description 01/04/2026 11:15 AM CDT Office Visit [facility] TABLE GAMES SHIFT MANAGER [address] [place] [address] Kristel Vaca MD [address] [place] [address] [facility] [address] [place] [address] documented as of this encounter Visit Diagnoses Diagnosis Other current maternal conditions classifiable elsewhere, antepartum- Primary documented in this encounter Care Teams Scrap Piler Relationship Specialty Start Date End Date Luis Rucker MD [address] [facility] [address] [place] [phone] PCP - General 04/03/04 documented as of this encounter
--- OUTSIDE RECORDS SUMMARY | 2025-01-26 10:22 | XMS_ITS | Encounter Summary ---
Author Organization [facility] Address 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 Gender Identity Not on file Sexual Orientation Not on file documented as of this encounter Plan of Treatment Upcoming Encounters Date Type Department Care Team (Late st Contact Info) Description 01/04/2026 11:15 AM CDT Office Visit [facility] SILK SCREEN LAYOUT DRAFTER [address] [place] [address] Kristel Vaca MD [address] [place] [address] [facility] [address] [place] [address] documented as of this encounter Visit Diagnoses Diagnosis Transient hypertension of , antepartum- Primary documented in this encounter Care Teams Swage Tender Relationship Specialty Start Date End Date Luis Rucker MD [address] [facility] [address] [place] [id number] PCP - General 04/03/04 documented as of this encounter
--- OUTSIDE RECORDS SUMMARY | 2025-01-26 10:22 | XMS_ITS | Clinical Summary ---
Author Organization [facility] Address [address] [place] [address] Care Team Providers Care Electrical Assembly Supervisor Name Role Phone Chaim, Luis Bello MD Primary Care Provider Allergies No known active allergies Medications SEMAGLUTIDE SUBCUT Inject by subcutaneous injection. Active pantoprazole sodium (PANTOPRAZOLE ORAL) Take by mouth. Activ e aspirin (ECOTRIN EC) 81 mg Tablet, Delayed Release (E.C.) Take 1 Tablet (81 mg) by mouth 2 times daily. 60 Tablet 1 4 4:52 PM CDT 07/23/20 24 Active Additional Information Patient not taking.Reported on 01/12/2025 progesterone micronized (Prometrium) 100 mg Capsule One tab by mouth nightly 30 Capsule 01/02/20 25 Active Additional Information Patient not taking.Reported on 01/12/2025 ALPRAZolam (XANAX) 0.25 mg tabletIndications :Chronic use of benzodiazepine for therapeutic purpose,Anxiety TAKE 1/2 TO 1 TABLET BY MOUTH TWICE DAILY NEEDED 30 Tablet 01/13/20 25 Active ALPRAZolam (XANAX) 0.25 mg tabletIndications :Chronic use of benzodiazepine for therapeutic purpose,Anxiety TAKE 1/2 TO 1 TABLET BY MOUTH TWICE DAILY NEEDED 30 Tablet 11/08/19 24 025 Discontinu ed(Reorder ) HYDROcodone-aceta minophen (NORCO) 5-325 mg tabletIndications :Closed fracture of left tibia and fibula, initial encounter Take 1 Tablet by mouth every 4 hours as needed for Pain. 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 (CxBx No MALIKA) 06/09/2014 0 10/14/2022 Overview (07/22/2020): Age 20 ?dysplasia 2011.06 HPV 16+, nl cytology 2011.06 CxBx = No MALIKA 2012. Pap nl, HPV- 2015. Pap nl 2018.08 Pap nl 2019.09 Pap nl 2020.10 Pap nl Encounters Date Type Department Care Team Description 01/16/2025 Results Follow-Up [facility] NURSING OFFICER [address] [place] [address] Kristel Vaca MD PATHOLOGY 01/16/2025 Telephone [facility] Clinical Support [address] [place] [address] Natasha Barney, RN Results 01/12/2025 1:30 PM CDT Procedure visit [facility] NURSING OFFIC[facility] [address] [place] [address] Kristel Vaca MD LGSIL on Pap smear of cervix (Primary Dx); Chronic use of benzodiazepine for therapeutic purpose; Anxiety, 2015 on Xanax 01/06/2025 Results Follow-Up [facility] NURSING OFFICER [address] [place] [address] Sara Corado NP CERV/VAG CYTO SCREEN PAP W/HPV 01/02/2025 Telephone [facility] Clinical Support [address] [place] [address] Unique Orourke, CHARLES mammogram 01/01/2025 11:00 AM CDT Office Visit [facility] NURSING OFFICER [address] [place] [address] Sara Corado NP Well woman exam with routine gynecological exam (Primary Dx); Encounter for screening mammogram for breast cancer; Menopausal syndrome; Hormone replacement therapy 12/24/2024 External Device Data STL ABSTRACTION Provider, Abstract 12/17/2024 External Device Data STL ABSTRACTION Provider, Abstract 12/16/2024 External Device Data STL ABSTRACTION Provider, Abstract 12/13/2024 External Device Data STL ABSTRACTION Provider, Abstract 12/12/2024 External Device Data STL ABSTRACTION Provider, Abstract 12/10/2024 External Device Data STL ABSTRACTION Provider, Abstract 11/26/2024 External Device Data STL ABSTRACTION Provider, Abstract 10/29/2024 External Device Data STL ABSTRACTION Provider, Abstract 10/29/2024 External Device Data STL ABSTRACTION Provider, Abstract from Last 3 Months Family History Medical History Relation Name Comments Healthy Brother Healthy Daughter Healthy Father Healthy Mother Healthy Son Breast Cancer Neg Hx Colon Cancer Neg Hx Ovarian Cancer Neg Hx Relation Name Status Comments Brother Alive Daughter Alive Father Alive Mother Alive Son Alive Social History Tobacco Use Types Packs/Day Years Used Date Smoking Tobacco: Every Day Cigarettes Smokeless Tobacco: Never Tobacco Cessation:Ready to Q uit: Not Asked; Counseling Given: Not Answered Alcohol Use Standard Drinks/Week Comments Not Currently 0 (1 standard drink = 0.6 oz pur e alcohol) 7.5 months sober Feeling Safe Answer Date Recorded Are you in a relationship wi th someone who hurts you emotionally and/or physically? 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 Gender Identity Not on file Sexual Orientation Not on file Last Filed Vital Signs Vital Sign Reading Time Taken Comments Blood Pressure 124/84 01/12/2025 1:21 PM CDT Pulse 77 07/24/2024 12:43 PM CDT Temperature 36.8 C (98.2 F) 07/24/2024 12:43 PM CDT Respiratory Rate 16 07/24/2024 12:43 PM CDT Oxygen Saturation 98% 07/24/2024 12:43 PM CDT Inhaled Oxygen Concentration - - Weight 72.1 kg (159 lb) 01/12/2025 1:21 PM CDT Height 165.1 cm (5' 5 ) 01/12/2025 1:21 PM CDT Body Mass Index 26.46 01/12/2025 1:21 PM CDT Plan of Treatment Upcoming Encounters Date Type Department Care Team (Late st Contact Info) Description 01/04/2026 11:15 AM CDT Office Visit [facility] NURSING OFFICER [address] [place] [address] [place] [address] [place] [address] Health Maintenance Due Date Last Done Comments Pre-Diabetes and Diabetes Screening 1970 DTAP/TDAP/TD VACCINES (1 - Tdap) 1990 HEPATITIS B VACCINES (1 of 3 - 19+ 3-dose series) 1990 FIT-DNA Q 3 years 2016 FIT/FOBT Q 1 year 2016 Flex Sig/CT Colonography Q 5 years 2016 ZOSTER VACCINE (1 of 2) 2021 BREAST CANCER SCREENING 10/24/2022 10/24/19 22, 10/15/2020, 09/16/2020, Additional history exists INFLUENZA VACCINE (#1) 2024 PAP SMEAR 01/02/2028 01/01/2025, 02/0 10/2023, 10/17/2022, Additional history exists CERVICAL CANCER SCREENING 01/01/2030 HPV/Cotest (21-29) 01/01/2030 01/01/2025, 0 11/08/2023, 10/17/2022, Additional history exists HPV/Cotest (30-65) 01/01/2030 01/01/2025, 0 11/08/2023, 10/17/2022, Additional history exists COLORECTAL SCREENING 04/28/2034 04/28/2024, 04/28/20 24 Colorectal Cancer Screening 04/28/2034 Preventative Visit- Commercial Completed 0 01/01/2025, 11/08/2023, 10/17/2022, Additional history exists Medical Devices Implanted Type Area Mat Maker Device Identifier Shelf Expiration Date Model / Serial / Lot Screw Loc Xl25 5.0x40mm 04.045.040s - [id number] Implanted:Qty: 1 on 07/23/2024 by Leon Patel MD at [facility] Screw Left: Tibia [employer]- DEPUY SYNTHES 04/06/2034 04.045.040 STS / / [id number] Description:REQ [id number] Screw Loc Xl25 5.0x38mm 04.045.038s - Sload Number 4 3 Implanted:Qty: 1 on 07/23/2024 by Leon Patel MD at [facility] Screw Left: [employer] DEPUY SYNTHES 04.045.038 TS / LOAD NUMBER 4 3 / STERILIZED 07/14/24 Screw Loc Xl25 5.0x34mm 04.045.034s - Sload Number 4 3 Implanted:Qty: 2 on 07/23/2024 by Leon Patel MD at [facility] Screw Left: [employer]PU[employer] SYN[employer]ES 04.045.034 TS / LOAD NUMBER 4 3 / STERILIZED 07/14/24 Screw Loc Xl25 5.0x30mm 04.045.030s - Sload Number 4 3 Implanted:Qty: 1 on 07/23/2024 by Leon Patel MD at [facility] Screw Left: [employer] SY[employer]ES 04.045.030 TS / LOAD NUMBER 4 3 / STERILIZED 07/14/24 Screw Loc Xl25 5.0x48mm 04.045.048s - Sload Number 4 3 Implanted:Qty: 1 on 07/23/2024 by Leon Patel MD at [facility] Screw Left: [employer]PU[employer] SYNTHES 04.045.048 S / LOAD NUMBER 4 3 / STERILIZED 07/14/24 Tibial Nail Advanced Implanted:Qty: 1 on 07/23/2024 by Leon Patel MD at [facility] Left: Tibia [employer] L[employer] [facility] 01/05/2034 04.043.135 S / / [id number] Explanted Type Area Mat Maker Device Identifier Shelf Expiration Date Model / Serial / Lot Tibial Nail Advanced Explanted:Qty: 1 on 07/23/2024 by Leon Patel MD at [facility] Nail Left: [employer] [facility] 03/07/2033 04.043.115 S / / [id number] Screw Loc Xl25 5.0x32mm 04.045.032s - Sload Number 4 3 Explanted:Qty: 1 on 07/23/2024 by Leon Patel MD at [facility] Screw Left: Tibia [employer] DEPUY SYNTHES 04.045.032 TS / LOAD NUMBER 4 3 / STERILIZED 07/14/24 Guidewire [id number] W/ Drill Tip 03.045.018 - Sload Number 4 3 Explanted:Qty: 1 on 07/23/2024 by Leon Patel MD at [facility] Wire Left: Tibia [employer] DEPUY SYNTHES 03.045.018 / LOAD NUMBER 4 3 / STERILIZED 07/14/24 Procedures Procedure Name Priority Date/Time Associated Diagnosis Comments PATHOLOGY Routine 01/12/2025 2:49 PM CDT LGSIL on Pap smear of cervix COLPOSCOPY Routine 01/12/2025 1:30 PM CDT LGSIL on Pap smear of cervix CERV/VAG CYTO SCREEN PAP W/HPV Routine 01/01/2025 3:04 PM CDT Well woman exam with routine gynecological exam COLONOSCOPY REPORT 04/28/2024 8: 23 AM CDT MAMMO 3D CLARENCE SCREEN BILAT W OR WO CAD Routine 10/24/2021 from Last 3 Months or Most Recently Relevant to Health Maintenance Results * PATHOLOGY (01/12/2025 2:49 PM CDT) CASE REPORT Surgical Pathology Report Case: [id number] Authorizing Provider: Kristel Vaca Collected: 01/12/2025 02:49 PM MD Albertina Ordering Location: [facility] NURSING OFFICER [place] Received: 01/13/2025 10:14 AM [place] Pathologist: Jj Schneider MD Specimens: A) - Cervix, 12 o'clock B) - Endocervix, Endocervical curettage 01/15/2025 4:40 PM CDT [facility] FINAL DIAGNOSIS Cervix, 12:00, biopsy - 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 Received in formalin labeled with the patient's name and 12:00 cervix is a bowers-pink tissue fragment measuring 0.4 cm in greatest dimension. The specimen is entirely submitted as A1. B. Received in formalin labeled with the patient's name and endocervical curettage are multiple blood-tinged tissue fragments measuring 0.4 x 0.3 x 0.2 cm in aggregate. The specimen is entirely submitted as B1. 01/15/2025 4:40 PM CDT [facility] MICROSCOPIC DESCRIPTION Microscopic examination substantiates the diagnosis. Dr. Almonte has reviewed this case and concurs. 01/15/2025 4:40 PM CDT [facility] CLINICAL INFORMATION R87.612 - LGSIL on Pap smear of cervix [ICD-10-CM] 01/15/2025 4:40 PM CDT [facility] COMMENT Immunohistochemical stains were performed, if any, and interpreted at [facility]) Laboratory with appropriately staining controls. This test was developed and its performance characteristics determined by [facility] Lab. It has not been cleared or approved by the US Food and Drug Administration. The FDA does not require this test to go through premarket FDA review. This test is used for clinical purposes, and should not be regarded as investigational or for research. This lab is certified under CLIA to perform high complexity testing. Estrogen and progesterone receptor staining has not been validated in our lab on decalcified tissue; decalcification may decrease immunoreactivity for these and other antigens. 01/15/2025 4:40 PM CDT [facility] Tissue SWAB OF ENDOCERVIX / Unknown Collection / Unknown 01/12/2025 2:49 PM CDT 01/13/2025 10:14 AM CDT Tissue specimen (specimen) SWAB OF ENDOCERVIX / Unknown 01/12/2025 2:49 PM CDT 01/13/2025 10:14 AM CDT us Kristel Alva MD PATHOLOGY/CYTOLOG Y ORDERABLES Final Result [facility] CLIA# [id number] [place] [address] * COLPOSCOPY (01/12/2025 1:30 PM CDT) [facility] NURSING OFFICER ROBERTA DOWNEY - 01/12/2025 1:30 PM CDT Kristel Vaca MD 01/12/2025 7:04 PM COLPOSCOPY Date/Time: 01/12/2025 1:30 PM Performed by: Kristel Vaca MD Authorized by: Kristel Vaca MD Procedure location: cervix Consent: Patient questions answered: yes Risks and benefits of the procedure and its alternatives discussed: yes Consent obtained: Verbal and written Consent given by: Patient Indication: Cervical indication(s): cervical LSIL Pre-procedure: Anesthesia premedication: Xanax. Speculum was placed in the vagina: yes Prep solution(s): acetic acid Procedure: Colposcopy with: colposcopy only, cervical biopsy and endocervical curettage Biopsy taken: yes # of biopsies: 1 Biopsy location(s): 12 o'clock Cervix visibility: fully visualized SCJ visibility: fully visualized Acetowhite lesion(s): cervix Acetowhite lesion(s) description: 12 o'clock Post-procedure: Patient tolerance of procedure: Patient tolerated the procedure well with no immediate complications Comments: Colposcopy Procedure Note Pre-operative Diagnosis: Cervical LSIL Post-operative Diagnosis: Same Indications: Pap smear showed: LSIL. The prior pap showed reactive cells Prior cervical/vaginal disease: Normal exam without visible pathology. Prior cervical treatment: no treatment. Procedure Details The risks and benefits of the procedure and written informed consent obtained. Speculum placed in vagina and excellent visualization of cervix achieved, cervix swabbed x 3 with acetic acid solution. Findings: Cervix: acetowhite lesion(s) noted at 12 o'clock; endocervical curettage performed and cervical biopsies taken at 12 o'clock. Vaginal inspection: vaginal colposcopy not performed. Vulvar colposcopy: vulvar colposcopy not performed. Specimens: 1. Cervix (12 o'clock) 2. Endocervix (endocervical curettage) Complications: none. Plan: Specimens labelled and sent to Pathology. Will base further treatment on Pathology findings. Kristel Alva MD [facility] NURSING OFFICER - [place] Kristel Alva MD PROCEDURE/MINOR S URGICAL ORDERABLES Final Result [facility] NURSING OFFICER [facility] CLIA# [id number] [address] [place] [address] * (ABNORMAL) CERV/VAG CYTO SCREEN PAP W/HPV (01/01/2025 3:04 PM CDT) CLINICAL INFORMATION [facility] [place] Comment:None given LAST MENSTRUAL PERIOD [facility] [place] Comment:None given PREV PAP: [facility] [place] Comment:None given PREV BX: [facility] [place] Comment:None given SOURCE [facility] [place] Comment:Endocervix ADEQUACY: [facility] [place] Comment: Satisfactory for evaluation. Endocervical/transformation zone component present. Age and/or menstrual status not provided GENERAL CATEGORIZATION: (A) [facility] [place] Comment:Cytology Results: Ep ithelial Cell Abnormality PAP INTERP (A) [facility] [place] Comment:Low Grade Squamous I ntraepithelial Lesion (LSIL) COMMENT (PAP TEST) [facility] [place] Comment: This Pap test has been evaluated with computer assisted technology. Suggest clinical correlation and follow-up as clinically appropriate ACCOUNT GROUP SUPERVISOR: [facility] [place] Comment: ABC, CT(ASCP) CT screening location: [place] [address] [place] [address] PATHOLOGIST [facility] Comment: Carlos Foster M.D., Board Certified in Anatomic Pathology and Cytopathology. (electronic signature) EXPLANATORY NOTE [facility] [place] Comment: EXPLANATORY NOTE: The Pap is a screening test for cervical cancer. It is not a diagnostic test and is subject to false negative and false positive results. It is most reliable when a satisfactory sample, regularly obtained, is submitted with relevant clinical findings and history, and when the Pap result is evaluated along with historic and current clinical information. HPV E6/E7 Not Detected Not Detected [facility] [place] Comment: Methodology: Cyber Operator-Mediated Amplification This assay detects E6/E7 viral messenger RNA (mRNA) from 14 high-risk HPV types (16,18,31,33,35,39,45,51,52,56,58,59,66,68). Cervical sources are required for HPV testing. If a vaginal source from a patient who has had a total hysterectomy with removal of cervix was submitted, please contact the testing laboratory for alternative testing options. For additional information, please refer to http://education.ZappyLab/faq/FSC355o0 (This link if provided for information/ educational purposes only.) Test Performed at: [facility] [address] [place] [address] Elayne SALDIVAR Genital SWAB OF ENDOCERVIX / Unknown 01/01/2025 3:04 PM CDT 01/02/2025 1:02 AM CDT Sara Corado NP PATHOLOGY/CYTOLOGY ORDERABLES Final Result [facility] [phone] [facility] [address] [place] [address] * COLONOSCOPY REPORT (04/28/2024 8:23 AM CDT) Narrative Procedure Note Ivis Velasco DO - 04/28/2024 8:23 AM CDT [facility] Endoscopy Patient Name: Natasha Blanchard Procedure Date: 04/28/2024 Date of : 1970 Attending MD: Ivis Velasco DO, Procedure: Colonoscopy Indications: Screening for colorectal malignant neoplasm, Last colonoscopy: 2018 with hyperplastic polyps. No known FH of CRC or advanced polyps. Providers: Ivis Velasco DO Referring MD: Luis Rucker MD Medicines: Monitored Anesthesia Care Complications: No immediate complications. Procedure: Informed consent was obtained for the procedure, including moderate sedation after risks were discussed. Based on the pre-procedure assessment, including review of the patient's medical history, medications, allergies, and review of systems, the patient was deemed to be an appropriate candidate for sedation. A timeout was performed. Continuous ECG monitoring, pulse oximetry, blood pressure monitoring, and direct observation were performed. The was introduced through the anus and advanced to the terminal ileum, with identification of the appendiceal orifice and IC valve. The colonoscopy was performed without difficulty. The patient tolerated the procedure well. The quality of the bowel preparation was good. The quality of the bowel preparation was evaluated using the BBPS ([place]lette Bowel Preparation Scale) with scores of: Right Colon = 3 (entire mucosa seen well with no residual staining, small fragments of stool or opaque liquid), Transverse Colon = 3 (entire mucosa seen well with no residual staining, small fragments of stool or opaque liquid) and Left Colon = 2 (minor amount of residual staining, small fragments of stool and/or opaque liquid, but mucosa seen well). The total BBPS score equals 8. The terminal ileum, ileocecal valve, appendiceal orifice, and rectum were photographed. Estimated Blood Loss: Estimated blood loss was minimal. Findings: The terminal ileum appeared normal. Two semi-sessile polyps were found in the sigmoid colon. The polyps were 3 to 4 mm in size. These polyps were removed with a cold snare. Resection and retrieval were complete. A 3 mm polyp was found in the rectum. The polyp was sessile. The polyp was removed with a cold snare. Resection and retrieval were complete. Internal hemorrhoids were found during retroflexion. The hemorrhoids were small. The exam was otherwise without abnormality on direct and retroflexion views. Impression: - The examined portion of the ileum was normal. - Two 3 to 4 mm polyps in the sigmoid colon, removed with a cold snare. Resected and retrieved. - One 3 mm polyp in the rectum, removed with a cold snare. Resected and retrieved. - Internal hemorrhoids. - The examination was otherwise normal on direct and retroflexion views. Recommendation: - Discharge patient to home. - High fiber diet. - Await pathology results. - Repeat colonoscopy for surveillance based on pathology results. - Return to primary care physician as previously scheduled. - Your pathology results typically return within 3-5 business days. You may receive an email/[facility] notification that results are back. However, this does not mean that the physician has reviewed them yet. It will typically take 5-7 business days for the physician to review the results. We will notify you of the results once the physician has had a chance to review them. If you have not received results from the physician's office within 10 business days from the procedure, then please contact us at that point. Ivis Velasco DO 04/28/2024 8:22:48 AM Number of Addenda: [address]; [place] [address] us Ivis Velasco DO GI PROCEDURE ORDERABLES Final Re sult * MAMMO SCRN BILAT 3D CLARENCE W OR WO CAD (10/24/2021) Anatomical Region Laterality Modality Breast Bilateral Mammography us Jalen Jiang MD MAMMO ORDERABLES Edited Result - Final from Last 3 Months or Most Recently Relevant to Health Maintenance Insurance [employer] Commercial Advance Directives For more information, please contact: [phone] * Full Code (Latest Code Status on File) Date Activated Date Inactivated Comments 07/22/2024 6:17 PM 07/24/2024 7:00 PM * Full Code Date Activated Date Inactivated Comments 04/28/2024 7:08 AM 04/28/2024 10:54 AM Care Teams Electrical Assembly Supervisor Relationship Specialty Start Date End Date Luis Rucker MD [address] [address] PCP - General 04/03/04
== END 2025-01-26 09:21 | disposition home or self-care (01) ==
LOC: ANHIMG 09:23
PROVIDERS: PCP Family Medicine
DX: Z12.31 Encounter for screening mammogram for malignant neoplasm of breast (principal)
CPT/HCPCS: 77063; 77067

== ENCOUNTER → 2025-05-18 15:46 | Outpatient (REF) | payer BC, SELFPAY ==
--- NOTE | 2025-05-18 15:46 | S_PTH ---
PATIENT: Natasha Blanchard LOC: [facility] U#:[id number] AGE/SX: 55/F ROOM: RE05/18/[address]: Brant Carmona MD : 1970 BED: DIS: SPEC #: [id number] RECD: 05/19/25 14:07 STATUS: GENI RE #: [id number] FAUSTO: 05/18/25 15:[address]: Brant Carmona DEPT: [facility] Surgical RECD BY: Bessy Richardson ENTERED: 05/19/25 14:07 SP TYPE: Surgical OTHR DR: Gage ConnellMD Tissues: A - Mass Procedures: Hematoxylin and Eosin Stain Gross and Microscopic Level 3 P16
--- OUTSIDE RECORDS SUMMARY | 2025-05-18 16:03 | XMS_ITS | Encounter Summary ---
Author Organization [facility] Address 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 REPRODUCTIVE ENDOCRINOLOGIST [address] [place] [address] Kristel Vaca MD [address] [place] [address] [facility] 200 [place] [address] documented as of this encounter Visit Diagnoses Diagnosis Unspecified hypertension antepartum(642.93)- Primary Unspecified hypertension antepartum documented in this encounter Care Teams Various Exceptionalities Teacher Relationship Specialty Start Date End Date Luis Rucker MD [facility] [facility] [address] [place] [address] PCP - General 04/03/04 documented as of this encounter
--- OUTSIDE RECORDS SUMMARY | 2025-05-18 16:03 | XMS_ITS | Encounter Summary ---
Author Organization [facility] Address [address] [place] [address] Care Team Providers Care Foamite Mixer Name Role Phone Luis Rucker MD Primary Care Provider Encounter Details Date Type Department Care Team (Latest Contact Info) Description 07/16/2001 Outpatient Historical HIS PATIENT IN A BED Seng Causey MD [address] [place] [address] Jalen Jiang MD [address] [place] [address] Other current maternal conditions classifiable elsewhere, antepartum (Primary Dx) Social History Tobacco Use Types Packs/Day Years Used Date Smoking Tobacco: Never Assessed Comments Unknown Sex and Gender Information Value Date Recorded Sex Assigned at Not on file 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 OPERATOR Gender Identity Not on file Sexual Orientation Not on file documented as of this encounter Plan of Treatment Upcoming Encounters Date Type Department Care Team (Late st Contact Info) Description 01/04/2026 11:15 AM CDT Office Visit [facility] LIFE ENRICHMENT ASSISTANT [address] [place] [address] Kristel Vaca MD [address] [place] [address] [facility] [address] [place] [address] documented as of this encounter Visit Diagnoses Diagnosis Other current maternal conditions classifiable elsewhere, antepartum- Primary documented in this encounter Care Teams Foamite Mixer Relationship Specialty Start Date End Date Luis Rucker MD [address] [place] [address] PCP - General 04/03/04 documented as of this encounter
--- OUTSIDE RECORDS SUMMARY | 2025-05-18 16:03 | XMS_ITS | Encounter Summary ---
Author Organization [facility] Address [address] [place] [address] Care Team Providers Care Circuit Breaker Supervisor Name Role Phone Luis Rucker MD Primary Care Provider Encounter Details Date Type Department Care Team (Latest Contact Info) Description 10/16/2001 Outpatient Historical HIS PATIENT IN A BED Jalen Jiang MD [address] [place] [address] TRANS HYPERTEN-ANTEPART (Primary Dx) Social History Tobacco Use Types Packs/Day Years Used Date Smoking Tobacco: Never Assessed Comments Unknown Sex and Gender Information Value Date Recorded Sex Assigned at Not on file Legal Sex Female 3:28 AM MANAGED CARE PROVIDER Gender Identity Not on file Sexual Orientation Not on file documented as of this encounter Plan of Treatment Upcoming Encounters Date Type Department Care Team (Late st Contact Info) Description 01/04/2026 11:15 AM CDT Office Visit [facility] MERCANTILE REPORTER [address] [place] [address] Kristel Vaca MD [address] [place] [address] [facility] [address] [place] [address] documented as of this encounter Visit Diagnoses Diagnosis Transient hypertension of , antepartum- Primary documented in this encounter Care Teams Circuit Breaker Supervisor Relationship Specialty Start Date End Date Luis Rucker MD [address] [facility] [address] [place] [phone] PCP - General 04/03/04 documented as of this encounter
--- OUTSIDE RECORDS SUMMARY | 2025-05-18 16:03 | XMS_ITS | Encounter Summary ---
Author Organization [employer] Address [address] [place] [address] Care Team Providers Care Tire Layer Name Role Phone Luis Rucker MD Primary Care Provider Encounter Details Date Type Department Care Team (Latest Contact Info) Description 06/03/2001 Outpatient Historical [facility] Jalen Jiang MD [address] [place] [address] Unspecified high-risk (Primary Dx) Social History Tobacco Use Types Packs/Day Years Used Date Smoking Tobacco: Never Assessed Comments Unknown Sex and Gender Information Value Date Recorded Sex Assigned at Not on file Legal Sex Female 3:28 AM INFORMATION MANAGER Gender Identity Not on file Sexual Orientation Not on file documented as of this encounter Plan of Treatment Upcoming Encounters Date Type Department Care Team (Late st Contact Info) Description 01/04/2026 11:15 AM CDT Office Visit [facility] ADMINISTRATION PHYSICIAN [address] [place] [address] Kristel Vaca MD [address] [place] [address] [facility] [address] [place] [address] documented as of this encounter Visit Diagnoses Diagnosis Unspecified high-risk - Primary documented in this encounter Care Teams Tire Layer Relationship Specialty Start Date End Date Luis Rucker MD [address] [facility] [address] [place] [address] PCP - General 04/03/04 documented as of this encounter
--- OUTSIDE RECORDS SUMMARY | 2025-05-18 16:03 | XMS_ITS | Encounter Summary ---
Author Organization [facility] Address 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 Gender Identity Not on file Sexual Orientation Not on file documented as of this encounter Plan of Treatment Upcoming Encounters Date Type Department Care Team (Late st Contact Info) Description 01/04/2026 11:15 AM CDT Office Visit [facility] WOOD CAR BUILDER [address] [place] [address] Kristel Vaca MD [address] [place] [address] [facility] 200 [place] [address] documented as of this encounter Visit Diagnoses Diagnosis Other current maternal conditions classifiable elsewhere, antepartum- Primary documented in this encounter Care Teams Tool Filer Hand Relationship Specialty Start Date End Date Luis Rucker MD [facility] [address] [place] [address] PCP - General 04/03/04 documented as of this encounter
--- OUTSIDE RECORDS SUMMARY | 2025-05-18 16:03 | XMS_ITS | Clinical Summary ---
Author Organization [facility] Address [address] [place] [address] Care Team Providers Care Eyeglass Frame Truer Name Role Phone Unavailable Primary Care Provider [...]
--- OUTSIDE RECORDS SUMMARY | 2025-05-18 16:03 | XMS_ITS | Encounter Summary ---
Author Organization [facility] Address [address] [place] [address] Care Team Providers Care Esthetician Name Role Phone Luis Rucker MD Primary Care Provider [phone] Encounter Details Date Type Department Care Team (Latest Contact Info) Description 09/27/2001 Outpatient Historical HIS PATIENT IN A BED Jalen Jiang MD [address] [place] [address] OTHER CURR COND-ANTEPARTUM (Primary Dx) Social History Tobacco Use Types Packs/Day Years Used Date Smoking Tobacco: Never Assessed Comments Unknown Sex and Gender Information Value Date Recorded Sex Assigned at Not on file Legal Sex Female 3:28 AM SOLE SCRAPER Gender Identity Not on file Sexual Orientation Not on file documented as of this encounter Plan of Treatment Upcoming Encounters Date Type Department Care Team (Late st Contact Info) Description 01/04/2026 11:15 AM CDT Office Visit [facility] KENNEL HAND [address] [place] [address] Kristel Vaca MD [address] [place] [address] [facility] [address] [place] [address] documented as of this encounter Visit Diagnoses Diagnosis Other current maternal conditions classifiable elsewhere, antepartum- Primary documented in this encounter Care Teams Esthetician Relationship Specialty Start Date End Date Luis Rucker MD [facility] [facility] [address] [place] [address] PCP - General 04/03/04 documented as of this encounter
--- OUTSIDE RECORDS SUMMARY | 2025-05-18 16:03 | XMS_ITS | Encounter Summary ---
Author Organization [facility] Address [address] [place] [address] Care Team Providers Care Sand Conditioner Name Role Phone Luis Rucker MD Primary Care Provider Encounter Details Date Type Department Care Team (Latest Contact Info) Description 10/11/2001 Outpatient Historical HIS PATIENT IN A BED Jalen Jiang MD [address] [place] [address] OTHER CURR COND-ANTEPARTUM (Primary Dx) Social History Tobacco Use Types Packs/Day Years Used Date Smoking Tobacco: Never Assessed Comments Unknown Sex and Gender Information Value Date Recorded Sex Assigned at Not on file Legal Sex Female 3:28 AM FRAME FIXER Gender Identity Not on file Sexual Orientation Not on file documented as of this encounter Plan of Treatment Upcoming Encounters Date Type Department Care Team (Late st Contact Info) Description 01/04/2026 11:15 AM CDT Office Visit [facility] POLISH MAKER [address] [place] [address] Kristel Vaca MD [address] [place] [address] [facility] [address] [place] [address] documented as of this encounter Visit Diagnoses Diagnosis Other current maternal conditions classifiable elsewhere, antepartum- Primary documented in this encounter Care Teams Sand Conditioner Relationship Specialty Start Date End Date Luis Rucker MD [facility] [address] [place] [address] PCP - General 04/03/04 documented as of this encounter
--- OUTSIDE RECORDS SUMMARY | 2025-05-18 16:03 | XMS_ITS | Encounter Summary ---
Author Organization [facility] Address 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 Gender Identity Not on file Sexual Orientation Not on file documented as of this encounter Plan of Treatment Upcoming Encounters Date Type Department Care Team (Late st Contact Info) Description 01/04/2026 11:15 AM CDT Office Visit [facility] INDIRECT SALES REPRESENTATIVE [address] [place] [address] Kristel Vaca MD [address] [place] [address] [facility] [address] [place] [address] documented as of this encounter Visit Diagnoses Diagnosis Transient hypertension of , with delivery- Primary documented in this encounter Care Teams Finger Lift Operator Relationship Specialty Start Date End Date Luis Rucker MD [address] [facility] [address] [place] [address] PCP - General 04/03/04 documented as of this encounter
--- OUTSIDE RECORDS SUMMARY | 2025-05-18 16:03 | XMS_ITS | Encounter Summary ---
Author Organization [facility] Address [address] [place] [address] Care Team Providers Care Target Setter Name Role Phone Luis Rucker MD Primary Care Provider Encounter Details Date Type Department Care Team (Latest Contact Info) Description 04/03/2004 Inpatient Historical HIS PATIENT IN A BED Seng Causey MD [address] [place] [address] Jalen Jiang MD [address] [place] [address] DEL W 2 DEG LACERAT-DEL (Primary Dx) Social History Tobacco Use Types Packs/Day Years Used Date Smoking Tobacco: Never Assessed Comments Unknown Sex and Gender Information Value Date Recorded Sex Assigned at Not on file Legal Sex Female 3:28 AM SAWMILL EQUIPMENT OPERATOR Gender Identity Not on file Sexual Orientation Not on file documented as of this encounter Plan of Treatment Upcoming Encounters Date Type Department Care Team (Late st Contact Info) Description 01/04/2026 11:15 AM CDT Office Visit [facility] ENGRAVER WOOD [address] [place] [address] Kristel Vaca MD [address] [place] [address] [facility] [address] [place] [address] documented as of this encounter Visit Diagnoses Diagnosis Second-degree perineal laceration, with delivery- Primary documented in this encounter Care Teams Target Setter Relationship Specialty Start Date End Date Luis Rucker MD [address] [place] [address] PCP - General 04/03/04 documented as of this encounter
--- OUTSIDE RECORDS SUMMARY | 2025-05-18 16:03 | XMS_ITS | Clinical Summary ---
Author Organization [facility] Address [address] [place] [address] Care Team Providers Care Semiconductor Processing Technician Name Role Phone Chaim, Luis Bello MD [...] One tab by mouth nightly 30 Capsule 11 01/02/20 25 Active Additional Information Patient not taking.Reported on 01/12/2025 ALPRAZolam (XANAX) 0.25 mg tabletIndications: Chronic use of benzodiazepine for therapeutic purpose,Anxiety TAKE 1/2 TO 1 TABLET BY MOUTH TWICE DAILY NEEDED 30 Tablet 01/13/20 25 Active Active Problems Problem Noted Date Diagnosed Date Closed fracture of left tibia and fibula 024 Generalized anxiety disorder 10/14/2022 Chronic use of benzodiazepine for therapeutic pu rpose 10/14/2022 History of abnormal cervical Pap smear 3 Overview (10/14/2022): 2011: HPV+, CxBx negative Perimenopausal 10/11/2021 Ovarian cyst, left 05/22/2018 Overview (08/28/2018): 2018.08 Left ovarian cyst, 3.9 Endometrium 7 2018.11 Left ovarian cyst, 2.9 Endometrium 8.9 (??cyst might be fibroid?) Pelvic pain in female 05/03/2017 Tobacco use 10/18/2015 Right lateral abdominal pain 10/14/2014 Resolved Problems Problem Noted Date Diagnosed Date Resolved Date Abnormal perimenopausal blee ding, start Prometrium 200 x7 nights, 2019.07/19/20202022 Dyspareunia, deep, tolerable 2018.08 05/22/2018 10/14/2022 Subserous leiomyoma of uteru s, 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, check US 2017.08 (maybe confused as lt ovar cyst) 05/15/2018 10/14/2022 Irregular menstrual cycle, persists 2018.05/03/2017 10/14/2022 Polymenorrhea 02/09/2015 10/14/2022 RLQ abdominal pain 02/09/2015 3 Anxiety, Xanax 0.25 mg 02/09/2015 10/14/2022 Status post elective 10/14/2014 10/14/2022 Menorrhagia 10/14/2014 10/14/2022 Overview (08/28/2018): Endometrium thickness: 5.8, 6.9, 8.9 (2017.11) HPV+ 2011.06 (CxBx No MALIKA) 06/09/2014 0 10/14/2022 Overview (07/22/2020): Age 20 ?dysplasia 2012.06 HPV 16+, nl cytology 2011.06 CxBx = No MALIKA 2012.08 Pap nl, HPV- 2016.01 Pap nl 2018.08 Pap nl 2019.09 Pap nl 2020.10 Pap nl Encounters Date Type Department Care Team Description 05/12/2025 External Device Data [facility] ABSTRACTION Provider, Abstract 04/22/2025 External Device Data [facility] ABSTRACTION Provider, Abstract 04/21/2025 External Device Data [facility] ABSTRACTION Provider, Abstract 03/24/2025 External Device Data [facility] ABSTRACTION Provider, Abstract 03/03/2025 External Device Data [facility] ABSTRACTION Provider, Abstract 02/25/2025 External Device Data [facility] ABSTRACTION Provider, Abstract 02/24/2025 External Device Data [facility] ABSTRACTION Provider, Abstract [...] oz pur e alcohol) 7.5 months sober Comments No Sex and Gender Information Value Date Recorded Sex Assigned at Not on file Legal Sex Female 3:28 AM VP CUSTOMER DEVELOPMENT Gender Identity Not on file Sexual Orientation [...] 1:21 PM CDT Height 165.1 cm (5' 5) 01/12/2025 1:21 PM CDT Body Mass Index 26.46 01/12/2025 1:21 PM CDT Plan of Treatment Upcoming Encounters Date Type Department Care Team (Late st Contact Info) Description 01/04/2026 11:15 AM CDT Office Visit [facility] CINDER DUMP CRANE OPERATOR [address] [place] [address] [place] [address] [place] [address] Health Maintenance Due Date Last Done Comments Pre-Diabetes and Diabetes Screening 1971 DTAP/TDAP/TD VACCINES (1 - Tdap) 1990 HEPATITIS B VACCINES (1 of 3 - 19+ 3-dose series) 1990 FIT-DNA Q 3 years 2016 FIT/FOBT Q 1 year 2016 Flex Sig/CT Colonography Q 5 years 2016 ZOSTER VACCINE (1 of 2) 2021 INFLUENZA VACCINE (#1) 2025 BREAST CANCER SCREENING 01/26/2026 01/27/20 25, 01/24/2024, 01/24/2024, Additional history exists PAP SMEAR 01/02/2028 01/01/2025, 0210/2023, 10/17/2022, Additional history exists CERVICAL CANCER SCREENING 01/01/2030 HPV/Cotest (21-29) 01/01/2030 01/01/2025, 0 11/08/2023, 10/17/2022, Additional history exists HPV/Cotest (30-65) 01/01/2030 01/01/2025, 0 11/08/2023, 10/17/2022, Additional history exists COLORECTAL SCREENING 04/28/2034 04/28/2024, 04/28/20 Colorectal Cancer Screening 04/28/2034 Preventative Visit- Commercial Completed 0 01/01/2025, 11/08/2023, 10/17/2022, Additional history exists Medical Devices Implanted Type Area Manager Studio Device Identifier Shelf Expiration Date Model / Serial / Lot Screw Loc Xl25 5.0x40mm 04.045.040s - [id number] Implanted:Qty: 1 on 07/23/2024 by Leon Patel MD at [facility] Screw Left: Tibia [employer]- DEPUY SYNTHES 04/06/2034 04.045.040 STS / / [id number] Description:REQ [id number] Screw Loc Xl25 5.0x38mm 04.045.038s - Sload Number 4 3 Implanted:Qty: 1 on 07/23/2024 by Leon Patel MD at [facility] Screw Left: Tibia [employer]- DEPUY SYNTHES 04.045.038 TS / LOAD NUMBER 4 3 / STERILIZED 07/14/24 Screw Loc Xl25 5.0x34mm 04.045.034s - Sload Number 4 3 Implanted:Qty: 2 on 07/23/2024 by Leon Patel MD at [facility] Screw Left: Tibia [employer]- [employer]PU[employer] SYNTHES 04.045.034 TS / LOAD NUMBER 4 3 / STERILIZED 07/14/24 Screw Loc Xl25 5.0x30mm 04.045.030s - Sload Number 4 3 Implanted:Qty: 1 on 07/23/2024 by Leon Patel MD at [facility] Screw Left: Tibia [employer]- [employer]PU[employer] SYN[employer]ES 04.045.030 TS / LOAD NUMBER 4 3 / STERILIZED 07/14/24 Screw Loc Xl25 5.0x48mm 04.045.048s - Sload Number 4 3 Implanted:Qty: 1 on 07/23/2024 by Leon Patel MD at [facility] Screw Left: Tibia [employer]- [employer]PU[employer] SYNTHES 04.045.048 S / LOAD NUMBER 4 3 / STERILIZED 07/14/24 Tibial Nail Advanced Implanted:Qty: 1 on 07/23/2024 by Leon Patel MD at [facility] Left: Tibia SYNTHES [employer] [facility] 01/05/2034 04.043.135 S / / [id number] Explanted Type Area Manager Studio Device Identifier Shelf Expiration Date Model / Serial / Lot Tibial Nail Advanced Explanted:Qty: 1 on 07/23/2024 by Leon Patel MD at [facility] Nail Left: Tibia [employer] [facility] 03/07/2033 04.043.115 S / / [id number] Screw Loc Xl25 5.0x32mm 04.045.032s - Sload Number 4 3 Explanted:Qty: 1 on 07/23/2024 by Leon Patel MD at [facility] Screw Left: Tibia [employer]- DEPUY SYNTHES 04.045.032 TS / LOAD NUMBER 4 3 / STERILIZED 07/14/24 Guidewire [id number] W/ Drill Tip 03.045.018 - Sload Number 4 3 Explanted:Qty: 1 on 07/23/2024 by Leon Patel MD at [facility] Wire Left: Tibia [employer]J- DEPUY SYNTHES 03.045.018 / LOAD NUMBER 4 3 / STERILIZED 07/14/24 Procedures Procedure Name Priority Date/Time Associated Diagnosis Comments MAMMO 3D [facility]ARENCE DIAGNOSTIC BILAT W OR WO CAD Routine 01/26/2025 11:57 AM CDT CERV/VAG CYTO SCREEN PAP W/HPV Routine 01/01/2025 3:04 PM CDT Well woman exam with routine gynecological exam COLONOSCOPY REPORT 04/28/2024 8: 23 AM CDT from Last 3 Months or Most Recently Relevant to Health Maintenance Results * MAMMO 3D CLARENCE DIAGNOSTIC BILAT W OR WO CAD (01/26/2025 11:57 AM CDT) Anatomical Region Laterality Modality Breast Bilateral Mammography Sara Corado NP MAMMO ORDERABLES Edited Resul t - Final * (ABNORMAL) CERV/VAG CYTO SCREEN PAP W/HPV (01/01/2025 3:04 PM CDT) CLINICAL INFORMATION [facility] [place] Comment:None given LAST MENSTRUAL PERIOD [facility] [place] Comment:None given PREV PAP: [facility] [place] Comment:None given PREV BX: [facility] [place] Comment:None given SOURCE [facility] [place] Comment:Endocervix ADEQUACY: [facility] [place] Comment: Satisfactory for evaluation. Endocervical/transformation zone component present. Age and/or menstrual status not provided GENERAL CATEGORIZATION: (A) [facility] [place] Comment:Cytology Results: Ep ithelial Cell Abnormality PAP INTERP (A) [facility] [place] Comment:Low Grade Squamous I ntraepithelial Lesion (LSIL) COMMENT (PAP TEST) [facility] [place] Comment: This Pap test has been evaluated with computer assisted technology. Suggest clinical correlation and follow-up as clinically appropriate DINKEY ENGINE FIRER: [facility] [place] Comment: ABC, CT(ASCP) CT screening location: [place] [address] [place] [address] PATHOLOGIST Sheron Neural[facility] Suarez Comment: Carlos Foster M.D., Board Certified in Anatomic Pathology and Cytopathology. (electronic signature) EXPLANATORY NOTE Que [facility] Suarez Comment: EXPLANATORY NOTE: The Pap is a [...] information. HPV E6/E7 Not Detected Not Detected [facility] Comment: Methodology: Drop Wire Aligner-Mediated Amplification This assay detects E6/E7 viral messenger RNA (mRNA) from 14 high-risk HPV types (16,18,31,33,35,39,45,51,52,56,58,59,66,68). Cervical sources are required for HPV testing. If a vaginal source from a patient who has had a total hysterectomy with removal of cervix was submitted, please contact the testing laboratory for alternative testing options. For additional information, please refer to http://education.[place].fm/faq/[email or web address] (This link if provided for information/ educational purposes only.) Test Performed at: [facility] [address] [place] [address] Elayne SALDIVAR Genital SWAB OF ENDOCERVIX / Unknown 01/01/2025 3:04 PM CDT 01/02/2025 1:02 AM CDT Sara Corado NP PATHOLOGY/CYTOLOGY ORDERABLES Final Result [facility] [phone] [facility] [address] [place] [address] * COLONOSCOPY REPORT (04/28/2024 8:23 AM CDT) Narrative Procedure Note Ivis Velasco DO - 04/28/2024 8:23 AM CDT [facility] Endoscopy Patient Name: Natasha Blanchard Procedure Date: [...] bowel preparation was evaluated using the BBPS ([place] Bowel Preparation Scale) with scores of: Right [...] of Addenda: [address]; [place] [address] [place] Ivis Velasco DO GI PROCEDURE ORDERABLES Final Re sult from Last 3 Months or Most Recently Relevant to Health Maintenance Insurance [employer] Commercial Advance Directives For more information, please contact: [phone] * Full Code (Latest Code Status on File) Date Activated Date Inactivated Comments 07/22/2024 6:17 PM 07/24/2024 7:00 PM * Full Code Date Activated Date Inactivated Comments 04/28/2024 7:08 AM 04/28/2024 10:54 AM Care Teams Semiconductor Processing Technician Relationship Specialty Start Date End Date ChaimLuis MD [address] [facility] [address] [place] [address] PCP - General 04/03/04
== END ==
LOC: ANHGOSHLAB 15:46
PROVIDERS: PCP Family Medicine; Visit Provider Otolaryngology Otolaryngology/Facial Plastic Surgery
DX: D10.9 Benign neoplasm of pharynx, unspecified (principal)
CPT/HCPCS: 88304; 88342